=== PATIENT | male | born 1935 | race Caucasian/White ===

== ENCOUNTER 2017-10-12 10:19 | Observation (INO) | payer MEDICARE ==
[~2017-10-12] VITALS: Ht 175.3 cm; Wt 79.5 kg
[~2017-10-12 10:19] MED LIST: Z.0.AVAPRO150 MG PO; Z.0.CIPRO500 MG PO; Z.0.FLAGYL500 MG PO; Z.0.LUMIGAN2.5 M1 OP; Z.0.SYNTHROID50 MCG PO; Z.0.TRICOR48 MG PO
--- OUTSIDE RECORDS SUMMARY | 2017-10-12 10:21 | XMS REPORT ---
Author Author [facility] Address Unknown Phone Unavailable Care Team Providers Care Finance Effectiveness Manager Name Role Phone ARITAMARK ORTIZ Unavailable Unavailable LYNNE ESQUIVEL Unavailable Unavailable Problems This patient has no known problems. Allergies, Adverse Reactions, Alerts This patient has no known allergies or adverse reactions. Medications This patient has no known medications. Encounters Start Date/Time End Date/Time Encounter Type Admission Type Attending Clinicians Care Facility Care Department Encounter ID 2017-10-12 05:35:00 2017-10-12 06:43:00 Emergency E [facility] [id number] Results Test Description Test Time Test Comments Text Results Atomic Results Result Comments CARDIAC PROFILE 2017-10-12 06:43:00 TROPONIN I (test code=A84) <0.015 ng/mL 0.000-0.045 CKMB (test code=A49) 6.6 ng/mL <=3.6 CPK (test code=32A) 252 IU/L 39-308 COMPREHENSIVE METABOLIC [id number] 06:29:00* Test Item Value Reference Range Comments GLUCOSE (test code=06D) 149 mg/dL 75-100 SODIUM (test code=01A) 142 mmol/L 136-145 POTASSIUM (test code=01B) 3.9 mmol/L 3.6-5.1 CHLORIDE (test code=04A) 108 mmol/L 98-107 CO2 (test code=02A) 26 mmol/L 22-32 ANION GAP (test code=ANG) 11.9 mmol/L BUN (test code=05D) 22 mg/dL 7-18 CREATININE (test code=03E) 1.2 mg/dL 0.7-1.3 BUN/CREA (test code=BCR) 18 12-20 CALCIUM (test code=09D) 9.3 mg/dL 8.3-9.5 BILI TOTAL (test code=11A) 0.9 mg/dL 0.2-1.0 PROTEIN (test code=07D) 6.7 g/dL 6.4-8.2 ALBUMIN (test code=08D) 3.7 g/dL 3.5-4.8 GLOBULIN (test code=GLB) 3.0 g/dL 1.5-3.8 ALB/GLOB (test code=AGRR) 1.2 1.0-2.6 ALK PHOS (test code=35A) 83 IU/L 42-121 AST (test code=30A) 18 IU/L <=42 ALT (test code=31A) 17 IU/L <=78 PRO TIME AND [id number] 06:23:00* Test Item Value Reference Range Comments PT (test code=TT) 12.1 s 9.8-13.6 INR (test code=INR) 1.1 INRH (test code=INRH) SUGGESTED THERAPEUTIC RANGE FOR INR: 2.5 - 3.5 For Patients with Prosthetic Valves or Patients with recurrent Thromboembolic Events 2.0 - 3.0 For Most Other Applications PTT (test code=PTT) 30.4 s 20.2-38.0 PTTH (test code=PTTH) To monitor the effectiveness of heparin, we offer the Anti-Xa (Heparin Assay). It can be used for either unfractionated or LMW Heparin. Order Code is ANTI-XA CBC (INCLUDES AUTOMATED DIFFERENTIAL)2017-10-12 06:14:00* Test Item Value Reference Range Comments WBC (test code=WBC) 8.9 10\S\3/uL 4.5-11.0 RBC (test code=RBC) 4.34 10\S\6/uL 3.80-5.80 HGB (test code=HBG) 13.9 g/dL 14.0-18.0 HCT (test code=HCT) 41.2 % 35.0-46.0 MCV (test code=MCV) 94.9 fL 80.0-94.0 MCH (test code=MCH) 32.0 pg 27.0-31.0 MCHC (test code=MCHC) 33.7 g/dL 32.0-36.0 RDW (test code=RDW) 12.6 % 11.5-14.5 PLT (test code=PLT) 149 10\S\3/uL 130-400 MPV (test code=MPV) 10.0 fL 9.4-12.4 NEUTROP # (test code=NE#) 7.6 10\S\3/uL 2.0-8.0 LYMPH # (test code=LY#) 0.6 10\S\3/uL 1.2-4.0 MONOCYTE # (test code=MO#) 0.5 10\S\3/uL 0.0-1.1 EOSINOPH # (test code=EO#) 0.1 10\S\3/uL 0.0-0.7 BASOPHIL # (test code=BA#) 0.0 10\S\3/uL 0.0-0.3 IG # (test code=IG#) 0.04 10\S\3/uL 0.00-0.06 NRBC # (test code=NRBC#) 0.00 10\S\3/uL 0.00-0.01 NEUTROPH % (test code=NE%) 85.8 % 35.0-73.0 LYMPH % (test code=LY%) 7.1 % 20.0-55.0 MONO % (test code=MO%) 5.6 % 2.5-10.0 EOSINOPH % (test code=EO%) 0.7 % 0.0-5.0 BASOPHIL % (test code=BA%) 0.4 % 0.0-2.0 IG % (test code=IG%) 0.4 % 0.0-0.8 NRBC% (test code=NRBC%) 0.0 % 0.0-0.2 MANDIFF (test code=MDIFF) NO NO RBC MORPH (test code=RBCMOR) NORMAL XR CHEST 1 VIEW [id number] 06:03:55Xray Chest 1 viewsLocation Code: [id number]: None availableCLINICAL HISTORY: MVCFindings: The cardiomediastinal silhouette is within normal limits. No pulmonary edema, pleural effusion or consolidation, although exam evaluation is limited by lowlung volumes.IMPRESSION: No plain radiographic evidence of an acute cardiopulmonary abnormality,although evaluation is limited by low lung volumesCT CERVICAL SPINE W/O [id number] 06:02:52CT OF THE BRAIN AND CERVICAL SPINE WITHOUT CONTRAST Location code: [id number] HISTORY: MVCCOMPARISON: None.TECHNIQUE: CT brain and cervical spine was performed without IV contrast perprotocol. Automatic exposure control was utilized.FINDINGS: CT brain without:There is no acute intracranial hemorrhage or extra-axial collection. There isno hydrocephalus, midline shift, or significant mass effect.The basal cisterns are patent.There is generalized volume loss with compensatory enlargement of the corticalsulci and cerebral ventricles. Diffuse periventricular low attenuation is consistent with chronic small vesselischemic changes. Posterior circulation calcifications are notedThe paranasal sinuses and mastoid air cells are well-aerated.CT cervical spine: Findings are limited by instrument anterior fusion of C5-C7. No evidence ofacute cervical spine fracture or traumatic subluxation. DISH is noted. Noprevertebral soft tissue swelling. No pneumothorax is visualized.Impression: No acute intracranial hemorrhage or significant mass effect, acute cervicalspine fracture or traumatic subluxation.Additional findings as aboveCT HEAD W/O [id number] 06:02:52CT OF THE BRAIN AND CERVICAL SPINE WITHOUT CONTRAST Location code: [id number] HISTORY: MVCCOMPARISON: None.TECHNIQUE: CT brain and cervical spine was performed without IV contrast perprotocol. Automatic exposure control was utilized.FINDINGS: CT brain without:There is no acute intracranial hemorrhage or extra-axial collection. There isno hydrocephalus, midline shift, or significant mass effect.The basal cisterns are patent.There is generalized volume loss with compensatory enlargement of the corticalsulci and cerebral ventricles. Diffuse periventricular low attenuation is consistent with chronic small vesselischemic changes. Posterior circulation calcifications are notedThe paranasal sinuses and mastoid air cells are well- aerated.CT cervical spine:Findings are limited by instrument anterior fusion of C5-C7. No evidence ofacute cervical spine fracture or traumatic subluxation. DISH is noted. Noprevertebral soft tissue swelling. No pneumothorax is visualized.Impression:No acute intracranial hemorrhage or significant mass effect, acute cervicalspine fracture or traumatic subluxation.Additional findings as aboveCT BRAIN WO [place] [id number] [place] [address] Patient Name: SYL SALAS MR #: [id number] : 1935 Age/Sex: 81/M Req #: [id number] Adm Physician: Ordered by: LYNNE ESQUIVEL MD Report # : [id number] Location: Room/Bed: Procedure: 1202 -0003 CT/CT BRAIN WO Exam Date: 07/08/17 Exam Time: 0815 REPORT STATUS: Signed History:Fall, no loss of consciousness Comparison studies:None Technique: Axial images were obtained from the skull base to the vertex. Coronal and sagittal images reconstructed from the axial data. Intravenous contrast: None Findings: Scalp/skull: No abnormalities. Extra-axial spaces: No masses. No fluid collections. Brain sulci: Mildly prominent. Ventricles: Mild compensatory dilatation. No hydrocephalus. Parenchyma: Scattered and confluent hypodensities in the supratentorial white matter are small vessel ischemic changes. No masses, hemorrhage, or acute cortical vascular insults. Sellar/suprasellar region : No abnormalities. Craniocervical junction: Patent foramen magnum. No Chiari one malformation. Incidental findings: Atherosclerotic calcifications in the carotid siphons . Opacified and expanded left sphenoid sinus with periosteal thickening. Bilateral lens prostheses. Mild left superolateral orbital swelling. Impression: No acute abnormalities. Mild left superolateral orbital swelling. Chronic findings: 1. Mild generalized volume loss. 2. Moderate supratentorial white matter small vessel ischemic changes. 3. Chronic left sphenoid sinusitis Signed by: DR Sergio Dumont M.D. on 07/08/2017 11:34 AM Dictated By: SERGIO STEWARD MD 1135 Transcribed By: RAINA on 07/08/17 1134 COPY TO: LYNNE ESQUIVEL MD CT ORBIT/SELLA/PF WO [place] [address] Patient Name: SYL SALAS MR #: [id number] : 1935 Age/Sex: 81/M Req #: [id number] [facility] Physician: Ordered by: LYNNE ESQUIVEL MD Report # : [id number] Location: ER Room/Bed: Procedure: 1202 -0004 CT/CT ORBIT/SELLA/PF WO Exam Date: 07/08/17 Exam Time: 0815 REPORT STATUS: Signed Examination: CT orbits without Contrast History:Fall Comparison studies: None Technique: Axial images were obtained through the maxillofacial region. Coronal and sagittal reconstructions obtained from the axial data. Intravenous contrast: None Findings: Soft tissues: Mild superficial soft tissue swelling along the left superolateral orbit. Bones: No fractures or bony abnormalities. Orbits: Globes: Intact. Bilateral lens prostheses noted. Extra or intraconal abnormalities: None. Paranasal sinuses: Opacified expanded left sphenoid sinus with periosteal . Mild mucosal thickening in the maxillary sinuses Nasal cavity: Patent. No septal deviation. IMPRESSION: No fracture or dislocation. Mild superficial soft tissue swelling along the left superolateral orbit. Chronic left sphenoid sinusitis Signed by: DR Sergio Dumont M.D. on 07/08/2017 11:34 AM Dictated By: SERGIO STEWARD MD 1134 Transcribed By: RAINA on 07/08/17 1134 COPY TO: LYNNE ESQUIVEL MD
--- OUTSIDE RECORDS SUMMARY | 2017-10-12 10:21 | XMS REPORT | Summary of Care ---
Author Author MARLON Mayo, ADELIA Patel Unknown Address Unknown Phone Unavailable Care Team Providers Care Director Environmental Name Role Phone KRISTA Mayo, RAMBO CHAPMAN M.D., SERGIO Unavailable Unavailable MARLON Mayo, ADELIA Unavailable Unavailable KRISTA LUGO FL, RAMBO SEVILLA Unavailable Unavailable KAILA Mayo, LEE Unavailable Unavailable Unavailable Unavailable Functional Status Name Dates Details Functional status health issues are not documented Status: Name Dates Details Cognitive status health issues are not documented Status: Problems Name Dates Details Arthralgia of shoulder region (719.41, M25.519) Status: Active Otitis externa (380.10, H60.90) Status: Active Preventative health care (V70.0, Z00.00) Status: Active Localized swelling, mass or lump of trunk (R22.2) Status: Active Abdominal wall pain (789.00, R10.9) Status: Active Advance directive discussed with patient (V65.49, Z71.89) Status: Active Acute pharyngitis (462, J02.9) Status: Active Need for vaccination with 13-polyvalent pneumococcal conjugate vaccine (V03.82 , Z23) Status: Active Bilateral impacted cerumen (380.4, H61.23) Status: Active Constipation, chronic (564.00, K59.09) Status: Active Posterior neck pain (723.1, M54.2) Status: Active IFG (impaired fasting glucose) (790.21, R73.01) Status: Active Impaired fasting glucose (790.21, R73.01) Status: Active Chronic throat pain (784.1, R07.0) Status: Active Vitamin D deficiency (268.9, E55.9) Status: Active Diverticulosis of colon (562.10, K57.30) Status: Active Chronic mouth breathing (784.99, R06.5) Status: Active 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, M47.812) Status: Active Status post cervical spinal fusion (V45.4, Z98.1) Status: Active Xerostomia due to mouth breathing (527.7, R68.2) Status: Active Obstructive sleep apnea, adult (327.23, G47.33) Status: Active Hypertensive kidney disease with stage 3 chronic kidney disease (403.90, I12.9 ) Status: Active Persistent cough (786.2, R05) Status: Active Essential (primary) hypertension (401.9, I10) Status: Active Chronic kidney disease, stage III (moderate) (585.3, N18.3) Status: Active On statin therapy (V58.69, Z79.899) Status: Active Hyperlipidemia (272.4, E78.5) Status: Active Prediabetes (790.29, R73.03) Status: Active Hypothyroidism (244.9, E03.9) Status: Active Dependent edema (782.3, R60.9) Status: Active 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, 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: Active Influenza vaccine needed (V04.81, Z23) Status: Active Persistent cough (786.2, R05) Status: Active Posterior neck pain (723.1, M54.2) Status: Active Allergic rhinitis, seasonal (477.9, J30.2) Status: Active Diabetes mellitus (250.00, E11.9) Status: Active Head contusion (920, S00.93XA) Status: Active Acute bronchitis due to other specified organisms (466.0, J20.8) Status: Active Dizziness (780.4, R42) Status: Active Parkinson's disease (332.0, G20) Status: Active Other seborrheic dermatitis (690.18, L21.8) Status: Active Medications Name Dates Details Losartan Potassium 50 MG Oral Tablet TAKE 1 TABLET BY MOUTH EVERY DAY Quantity: 90 RAMBO VELASCO M.D. * Start : 20-Jul-2013 Active Levothyroxine Sodium 50 MCG Oral Tablet TAKE 1 TABLET BY MOUTH EVERY DAY * Quantity: 90 Refills: 0 RAMBO EVLASCO M.D. * Start : 19-Aug-2013 Active Tylenol CAPS 325mg prn * Refills: 0 Active Combigan SOLN 2.5mg twice daily * Refills: 0 Active OneTouch Delica Lancets 33G Check BG 2x a day * Quantity: 100 Refills: 11 SERGIO CHAPMAN M.D. * Start : 01-Apr-2014 Active Meclizine HCl - 25 MG Oral Tablet TAKE 1 TABLET EVERY 8 HOURS NEEDED FOR DIZZINESS * Quantity: 60 Refills: 1 RAMBO VELASCO M.D. * Start : 21-Oct-2015 Active OneTouch Verio w/Device Kit check bs 2x daily * Quantity: 1 Refills: 0 SERGIO CHAPMAN M.D. * Start : 30-May-2016 Active Calcium 600+D3 TABS TAKE 1 TABLET DAILY * Refills: 0 Active Vitamin D3 5000 UNIT Oral Tablet TAKE 1 TABLET DAILY * Refills: 0 Active Krill Oil CAPS TAKE 1 CAPSULE DAILY * Refills: 0 Active Latanoprost 0.005 % Ophthalmic Solution INSTILL 1 DROP IN BOTH EYES AT BEDTIME. * Refills: 0 Active Glucosamine Chond Complex/MSM TABS * Refills: 0 Active Gabapentin 100 MG Oral Capsule TAKE TWO CAPSULES BY MOUTH TWICE A DAY * Quantity: 120 Refills: 5 RAMBO VELASCO M.D. * Start : 14-Feb-2017 Active OneTouch Verio In Vitro Strip use to check BG 2xs daily * Quantity: 100 Refills: 11 SERGIO CHAPMAN M.D. * Start : 23-Nov-2016 Active PredniSONE 20 MG Oral Tablet TAKE 1 TABLET DAILY WITH FOOD. * Quantity: 5 Refills: 0 RAMBO VELASCO M.D. * Start : 18-Sep-2017 Active Allergies and Adverse Reactions Name Dates Details Codeine Derivatives (Allergy) Reaction: Hallucinations Status: Active Contrast Media Ready-Box MISC (Allergy) Status: Active Iodine SOLN (Allergy) Status: Active TraMADol HCl TABS (Allergy) Status: Active Past Medical History Name Dates Details History of abdominal pain (V13.89, Z87.898) Status: Resolved History of allergic rhinitis (V12.69, Z87.09) Status: Resolved History of athlete's foot (V12.09, Z86.19) Status: Resolved History of chest pain (V13.89, Z87.898) Status: Resolved History of esophageal reflux (V12.79, Z87.19) Status: Resolved History of glaucoma (V12.49, Z86.69) Status: Resolved History of headache (V13.89, Z87.898) Status: Resolved History of hiatal hernia (V12.79, Z87.19) Status: Resolved History of Muscle spasm (728.85, M62.838) Status: Resolved History of Prostate Cancer (V10.46) Status: Resolved History of Prostate cancer (185, C61) Status: Resolved History of Sinusitis (473.9, J32.9) Status: Resolved History of tendinitis (V13.59, Z87.39) Status: Resolved History of tinea cruris (V12.09, Z86.19) Status: Resolved History of vertigo (V12.49, Z87.898) Status: Resolved Procedures Procedure Dates Details History of Complete Colonoscopy Completed History of Diagnostic Esophagogastroduodenoscopy Completed History of Umbilical Hernia Repair Completed History of Back Surgery Completed History of Neck Surgery Completed History of Hemorrhoidectomy Completed History of Cataract Surgery Completed History of Thymectomy Completed History of Knee Surgery Completed Immunization Name Dates Details Td on: Sep-1996 Td on: Oct-2006 Pneumococcal polysaccharide vaccine, 23 valent on: Oct-2006 Hepatitis A on: 04-Nov-2008 Hepatitis A on: 22-May-2009 Influenza on: 08-Apr-2010 Pneumococcal polysaccharide vaccine, 23 valent on: 14-May-2010 Tdap on: 20-Sep-2011 Zoster (Zostavax) on: 04-Oct-2012 Influenza Comments: Approx [id number] Influenza Comments: Approx [id number] Influenza Comments: Approx [id number] Prevnar 13 Intramuscular Suspension Lot #: [id number] on: 18-Aug-2016 Fluzone High-Dose 0.5 ML Intramuscular Suspension Prefilled Syringe Lot #: [id number] on: 20-Apr-2017 Family History Name Dates Details Family history of FH Unobtainable - Patient Adopted Comments: Family History Status: Active Social History Name Dates Details - Status: Name Dates Details Never smoker Vital Signs Date Test Result Details [id number] BP Systolic 123 mm[Hg] Status: Comments: Location: LUE; Position: Sitting BP Diastolic 81 mm[Hg] Status: Comments: Location: LUE; Position: Sitting Height 69 in Status: Weight 173.375 lb Status: Body Mass Index Calculated 25.6 kg/m2 Status: Body Surface Area Calculated 1.94 m2 Status: Temperature 98.3 f Status: Comments: Method: Temporal Respiration Rate 16 /min Status: Comments: Quality: Normal O2 SAT 99 % Status: Comments: Source: RA Heart Rate 73 /min Status: Results Date Description Value Details Results not documented Plan of Care Name Dates Details Planned Observations Planned Goals not documented Planned Encounters Appointment; RAMBO VELASCO M.D. On: 17-Oct-2017 8:30 Interventions Provided Medications/Immunizations Administered* MethylPREDNISolone Acetate 40 MG/ML Injection Suspension Plan* Mr. Salas is a 81 year old male with PMH of untreated Parkinsons, DM2, HTN, HLD, and hypothyroidism who is here for 2-3 month history of allergic rhinitis. * They were given the allergy handout and advised to take OTC medications. * I will give him a shot of steroids to treat the flare. * Follow up as needed. Instructions Name Dates Details Instructions not documented Encounters Appointment; SERGIO CHAPMAN M.D. Encounter Diagnosis: Problem not documented On: 21-Oct-2015 8:00 Appointment; SERGIO CHAPMAN M.D. Encounter Diagnosis: Problem not documented On: 25-Feb-2016 8:30 Appointment; SERGIO CHAPMAN M.D. Encounter Diagnosis: Problem not documented On: 29-Jun-2016 8:00 Appointment; RAMBO VELASCO M.D. Encounter Diagnosis: Problem not documented On: 18-Aug-2016 9:45 Appointment; RAMBO VELASCO M.D. Encounter Diagnosis: Problem not documented On: 25-Aug-2016 8:30 Appointment; TRISTON JOSE D.O. Encounter Diagnosis: Problem not documented On: 19-Sep-2016 13:30 Appointment; RAMBO VELASCO M.D. Encounter Diagnosis: Problem not documented On: 04-Oct-2016 14:15 Appointment; RAMBO VELASCO M.D. Encounter Diagnosis: Problem not documented On: 18-Oct-2016 13:45 Appointment; SERGIO CHAPMAN M.D. Encounter Diagnosis: Problem not documented On: 24-Oct-2016 8:00 Appointment; ADELIA MASON M.D. Encounter Diagnosis: Problem not documented On: 24-Oct-2016 11:00
[2017-10-12 11:46] LABS: BASOPHILS # (AUTO) 0.1 (0.0-0.1); BASOPHILS % 0.5 % (0.0-1.0); EOSINOPHILS # (AUTO) 0.1 (0.0-0.4); EOSINOPHILS % 0.8 % (0.0-6.0); HEMATOCRIT 46.5 % (38.2-49.6); HEMOGLOBIN 15.7 g/dL (14.0-18.0); LYMPHOCYTES # (AUTO) 1.1 (1.0-3.2); LYMPHOCYTES % 10.5 % (18.0-39.1); MEAN CORPUSCULAR HEMOGLOBIN 32.4 pg (28-32); MEAN CORPUSCULAR HGB CONC 33.8 g/dL (31-35); MEAN CORPUSCULAR VOLUME 96.1 fL (81-99); MONOCYTES # (AUTO) 0.8 (0.2-0.8); MONOCYTES % 7.6 % (4.4-11.3); NEUTROPHILS # (AUTO) 8.7 (2.1-6.9); NEUTROPHILS % 80.3 % (38.7-80.0); PLATELET COUNT 137 x10e3/uL (140-360); RED BLOOD COUNT 4.84 x10e6/uL (4.3-5.7); RED CELL DISTRIBUTION WIDTH 12.6 % (11.7-14.4)
[2017-10-12 11:56] LABS: INR 1.1; PROTHROMBIN TIME 13.4 seconds (11.9-14.5)
[2017-10-12 11:57] LABS: PARTIAL THROMBOPLASTIN TIME 23.5 seconds (23.8-35.5)
[2017-10-12 12:04] LABS: ALBUMIN 4.1 g/dL (3.5-5.0); ALBUMIN/GLOBULIN RATIO 1.4 (0.8-2.0); ANION GAP 15.3 mmol/L (8-16); CALCIUM 9.5 mg/dL (8.4-10.2); CREATININE, SERUM 1.23 mg/dL (0.72-1.25); POTASSIUM 4.3 mmol/L (3.5-5.1)
[2017-10-12] MEDS ORDERED: ACETAMINOPHEN 325 MG TAB PO ONE (13:00)
[2017-10-12] MEDS: ASPIRIN 325 MG TAB PO ONE ×2 (13:15→14:00)
[2017-10-12] MEDS ORDERED: ENOXAPARIN SODIUM INJ 100 MG/ML SYR SC SCH (14:45)
[2017-10-12] MEDS: METOPROLOL TARTRATE 25 MG TAB PO SCH ×2 (15:00→21:00)
[2017-10-12] MEDS ORDERED: ENOXAPARIN INJ 80 MG/0.8 ML SYR SC SCH ×2 (15:00→21:00)
--- NOTE | 2017-10-12 15:00 | Diagnostic Imaging Report ---
PROCEDURE: A single AP view of the chest. COMPARISON: None. INDICATIONS: CHEST PAIN FINDINGS: Lines/tubes: None. Lungs: The lungs are well inflated and clear. There is no evidence of pneumonia or pulmonary edema. Pleura: There is no pleural effusion or pneumothorax. Heart and mediastinum: The heart and the mediastinum are unremarkable. Bones: No acute bony abnormality. Mild degenerative changes in bilateral glenohumeral and acromioclavicular joints. No acute, displaced fracture or dislocation in this single view. Partially visualized. Fusion hardware in the lower cervical/upper thoracic spine. Midline sternotomy wires. IMPRESSION: 1. No acute cardiopulmonary abnormalities. Beto Sheriff M.D. Dictated by: Beto Sheriff M.D. on 10/12/2017 at 15:00 Electronically approved by: Beto Sheriff M.D. on 10/12/2017 at 15:00
[2017-10-12] MEDS ORDERED: PRAVASTATIN SOD40 MG (17:57)
[2017-10-12] MEDS ORDERED: COMBIGAN EYE DRO5 ML ×2 (17:57→18:01)
[2017-10-12] MEDS ORDERED: LOSARTAN POTASS50 MG (17:57)
[2017-10-12] MEDS ORDERED: LATANOPROST2.5 ML OP (17:57)
[2017-10-12] MEDS ORDERED: CEPACOL SORE THROAT LOZENGES PO PRN (18:15)
[2017-10-12 18:16] VITALS: BP 138/92
[2017-10-12 18:17] VITALS: BP 138/92
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
[2017-10-12 19:00] VITALS: BP 100/62
[2017-10-12] MEDS ORDERED: LATANOPROST(OPTH) 2.5 ML BTL OP SCH (21:00)
[2017-10-12 21:25] LABS: CREATINE KINASE MB 17.4 ng/mL (0-5.0); FREE THYROXINE INDEX 1.8342 (1.4-3.8); THYROID STIMULATING HORMONE 1.181 uIU/mL (0.350-4.940)
[2017-10-12] MEDS: ENOXAPARIN 30 MG/0.3 ML SYR SC SCH (21:44)
[2017-10-12] MEDS: BRIMONIDINE/TIMOLOL (OPTH SOLN 5 ML DRPETTE OP SCH (21:44)
[2017-10-12 22:02] VITALS: BP 100/62
[2017-10-13] VITALS: BP 123/75
[2017-10-13 04:00] VITALS: BP 125/60
[2017-10-13] MEDS ORDERED: LEVOTHYROXINE SODIUM 50 MCG TAB PO SCH (06:00)
[2017-10-13 06:32] LABS: BASOPHILS # (AUTO) 0.1 (0.0-0.1); BASOPHILS % 0.7 % (0.0-1.0); EOSINOPHILS # (AUTO) 0.2 (0.0-0.4); EOSINOPHILS % 2.6 % (0.0-6.0); HEMATOCRIT 42.8 % (38.2-49.6); HEMOGLOBIN 14.1 g/dL (14.0-18.0); LYMPHOCYTES # (AUTO) 1.8 (1.0-3.2); LYMPHOCYTES % 20.2 % (18.0-39.1); MEAN CORPUSCULAR HEMOGLOBIN 32.3 pg (28-32); MEAN CORPUSCULAR HGB CONC 32.9 g/dL (31-35); MEAN CORPUSCULAR VOLUME 98.2 fL (81-99); MONOCYTES # (AUTO) 0.7 (0.2-0.8); MONOCYTES % 8.1 % (4.4-11.3); NEUTROPHILS # (AUTO) 6.2 (2.1-6.9); NEUTROPHILS % 68.1 % (38.7-80.0); PLATELET COUNT 142 x10e3/uL (140-360); RED BLOOD COUNT 4.36 x10e6/uL (4.3-5.7); RED CELL DISTRIBUTION WIDTH 12.8 % (11.7-14.4)
[2017-10-13 06:53] LABS: ANION GAP 14.1 mmol/L (8-16); CALCIUM 9.8 mg/dL (8.4-10.2); POTASSIUM 4.1 mmol/L (3.5-5.1)
[2017-10-13 06:54] LABS: CREATINE KINASE MB 12.4 ng/mL (0-5.0)
[2017-10-13 07:20] LABS: ALBUMIN 3.7 g/dL (3.5-5.0); ALBUMIN/GLOBULIN RATIO 1.3 (0.8-2.0); CREATININE, SERUM 1.31 mg/dL (0.72-1.25)
[2017-10-13 08:48] VITALS: BP 113/67
[2017-10-13] MEDS ORDERED: VALSARTAN 80 MG TAB PO SCH (09:00)
[2017-10-13] MEDS: BRIMONIDINE/TIMOLOL (OPTH SOLN 5 ML DRPETTE OP SCH (09:08)
[2017-10-13] MEDS: ENOXAPARIN 30 MG/0.3 ML SYR SC SCH (09:09)
[2017-10-13] MEDS: METOPROLOL TARTRATE 25 MG TAB PO SCH (09:09)
[2017-10-13] MEDS ORDERED: ACETAMINOPHEN 325 MG TAB PO PRN (09:45)
[2017-10-13 11:10] VITALS: BP 113/67
[2017-10-13 12:00] VITALS: BP 109/75
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
--- NOTE | 2017-10-13 13:15 | Diagnostic Imaging Report ---
PROCEDURE:X-RAY RIGHT SHOULDER, COMPLETE COMPARISON:01/02/15 INDICATIONS:SHOULDER PAIN FINDINGS: There are no fractures, dislocations, lytic or blastic lesions. The bones are well-mineralized. The soft-tissues are unremarkable. Degenerative changes of the right AC joint. CONCLUSION: No acute fracture or dislocation of the right shoulder. No significant change from prior exam. Dictated by: Malachi Phan M.D. on 10/13/2017 at 13:15 Electronically approved by: Malachi Phan M.D. on 10/13/2017 at 13:15
[2017-10-13 15:31] VITALS: BP 101/64
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
== END 2017-10-13 17:21 | disposition home or self-care (01) ==
LOC: ER 10:19 → ERHOLD 14:58 → IMCU 16:44
PROVIDERS: ADMIT Internal Medicine Cardiovascular Disease; ATTEND Internal Medicine Cardiovascular Disease
DX: M62.82 Rhabdomyolysis (principal); I10 Essential (primary) hypertension; E78.5 Hyperlipidemia, unspecified; E03.9 Hypothyroidism, unspecified; G20 Parkinson's disease; F02.80 Dementia in other diseases classified elsewhere, unspecified severity, without behavioral disturbance, psychotic disturbance, mood disturbance, and anxiety; Y93.89 Activity, other specified; E11.9 Type 2 diabetes mellitus without complications; Z85.46 Personal history of malignant neoplasm of prostate; V47.0XXA Car driver injured in collision with fixed or stationary object in nontraffic accident, initial encounter
CPT/HCPCS: 36415 ×2; 71045; 73030; 80053 ×2; 80061; 82140; 82150; 82550 ×2; 82553 ×2; 83690; 84436; 84443; 84479; 84484 ×2; 85025 ×2; 85610; 85730; 93005 ×2; 93306; 97161; 99284; G0378 ×2; J1650 ×3

== ENCOUNTER 2018-01-11 21:20 | Emergency (ER) | payer MEDICARE ==
[~2018-01-11] VITALS: Ht 175.3 cm; Wt 79.4 kg
[~2018-01-11 21:20] MED LIST changes: +COMBIGAN EYE DRO5 ML; +LATANOPROST2.5 ML OP; +LOSARTAN POTASS50 MG; +PRAVASTATIN SOD40 MG
--- OUTSIDE RECORDS SUMMARY | 2018-01-11 21:23 | XMS REPORT | Continuity of Care Document ---
Author Author [facility] Organization [facility] Address [address] [place] [address] Phone Unavailable Care Team Providers Care Culturist Name Role Phone RAMBO VELASCO PCP Insurance Providers Guarantor Rahul Cristobal Address [address] [place] [address] Email NONE Payer Blue Medicare Advantage Policy Number [id number] Subscriber's Name LevarRahul Relationship 18 Self / Same As Patient Effective Date 07 Advance Directives Directive Response Recorded Date/Time Does the patient have an advance directive? No 10/12/17 6:07pm If yes, is advance directive on file with [facility]? No 10/12/17 6:07pm If not on file with [facility] will patient provide a copy? No 10/12/17 6:07pm Do you have a Directive to Physician? No 10/12/17 12:17pm Do you have a Medical Power of Labor Gang Supervisor? Yes 10/12/17 12:17pm Do you have an out of hospital Do Not Resuscitate Order? No 10/12/17 12:17pm Do you have any special needs we should be aware of? No 10/12/17 12:17pm Do you have a support person here with you today? Yes 10/12/17 12:17pm Did patient receive Notice of Privacy Practices? Yes 10/12/17 12:17pm Did patient receive patient rights and responsibilities? Yes 10/12/17 12:17pm Problems Medical Problem Onset Date Status Chest pain Unknown Medications Current Home Medications Medication Dose Units Route Directions Days Qty Instructions Start Date Brimonidine Tartrate (Combigan Eye Drops) 5 Ml Drpette 1 Drop Twice A Day Latanoprost 2.5 Ml Drops 2.5 Ml Ophthalmic Bedtime Levothyroxine Sodium (Synthroid) 50 Mcg Tablet 50 Mcg Oral Daily Losartan Potassium 50 Mg Tablet Daily Pravastatin Sodium 40 Mg Tablet Bedtime Past Home Medications Medication Directions Ordered Status Bimatoprost (Lumigan) 2.5 Ml Drops, 2.5 Ml Ophthalmic Qhs Discontinued Brimonidine Tartrate (Combigan Eye Drops) 5 Ml Drpette, Twice A Day Discontinued Ciprofloxacin Hcl (Cipro) 500 Mg Tablet, 500 Mg Oral Twice A Day Discontinued Fenofibrate Nanocrystallized (Tricor) 48 Mg Tablet, 48 Mg Oral Daily Discontinued Irbesartan (Avapro) 150 Mg Tablet, 150 Mg Oral Daily Discontinued Metronidazole (Flagyl) 500 Mg Tablet, 500 Mg Oral Three Times A Day Discontinued Social History Social History Problem Response Recorded Date/Time Onset Date Status Hx Psychiatric Problems No 10/12/2017 6:07pm Not Applicable Not Applicable Smoking Status Start Date Stop Date Unknown if ever smoked Hospital Discharge Instructions No hospital discharge instruction information available. Plan of Care Discharge Date 10/13/17 5:21pm Disposition HOME, SELF-CARE Instructions/Education Provided Fall Prevention Prescriptions See Medication Section Referrals CLAYTON PINON MD (Cardiology) Order Date: 7-10 Days Entered Date: 10/13/2017 10:35am Address: [address] [place] [id number] [facility] (Family Practice) Order Date: 5-7 Days Entered Date: 10/13/2017 10:35am Additional Instructions/Education NO DRIVING FOLLOW UP WITH DR KRISTA PRATT ORDERED Functional Status Query Response Date Recorded FUNCTIONAL STATUS . October 13, 2017 11:19am Assistive Devices Straight Cane October 12, 2017 6:17pm Ambulation Ability Independent October 12, 2017 6:17pm Toileting Ability Independent October 12, 2017 6:17pm Allergies, Adverse Reactions, Alerts Allergen Type Severity Reaction Status Last Updated Iodine Allergy Mild Active 04/10/10 Codeine Allergy Unknown Rash Active 10/12/17 Tramadol Allergy Unknown Active 10/12/17 Immunizations No immunization information available. Vital Signs Acute Vital Signs Vital Response Date/Time Temperature (Fahrenheit) 97.3 degrees F (97.6 - 99.5) 10/13/2017 3:31pm Pulse Pulse Rate (adult) 60 bpm (60 - 90) 10/13/2017 3:31pm Respiratory Rate 18 bpm (12 - 24) 10/13/2017 3:31pm Blood Pressure 101/64 mm Hg 10/13/2017 3:31pm Height 5 ft 9 in 10/12/2017 10:25am Weight 175.31 lb 10/13/2017 1:18am Body Mass Index 25.9 kg/m^2 10/13/2017 1:18am Results Laboratory Results Test Name Result Units Flags Reference Collection Date/Time Result Date/ Time Comments White Blood Count 9.13 x10e3/uL 4.8-10.8 10/13/2017 6:15am 10/13/2017 6 :47am Red Blood Count 4.36 x10e6/uL 4.3-5.7 10/13/2017 6:15am 10/13/2017 6: 47am Hemoglobin 14.1 g/dL 14.0-18.0 10/13/2017 6:15am 10/13/2017 6:47am Hematocrit 42.8 % 38.2-49.6 10/13/2017 6:15am 10/13/2017 6:47am Mean Corpuscular Volume 98.2 fL 81-99 10/13/2017 6:15am 10/13/2017 6: 47am Mean Corpuscular Hemoglobin 32.3 pg H 28-32 10/13/2017 6:15am 2017 6:47am Mean Corpuscular Hemoglobin Concent 32.9 g/dL 31-35 10/13/2017 6:15am 10/13/2017 6:47am Red Cell Distribution Width 12.8 % 11.7-14.4 10/13/2017 6:152017 6:47am Platelet Count 142 x10e3/uL 140-360 10/13/2017 6:15am 10/13/2017 6: 47am Neutrophils (%) (Auto) 68.1 % 38.7-80.0 10/13/2017 6:15am 10/13/2017 6: 47am Lymphocytes (%) (Auto) 20.2 % 18.0-39.1 10/13/2017 6:1510/13/2017 6: 47am Monocytes (%) (Auto) 8.1 % 4.4-11.3 10/13/2017 6:1510/13/2017 6: 47am Eosinophils (%) (Auto) 2.6 % 0.0-6.0 10/13/2017 6:1510/13/2017 6: 47am Basophils (%) (Auto) 0.7 % 0.0-1.0 10/13/2017 6:1510/13/2017 6:47am IM GRANULOCYTES % 0.3 % 0.0-1.0 10/13/2017 6:1510/13/2017 6:47am Neutrophils # (Auto) 6.2 2.1-6.9 10/13/2017 6:15am 10/13/2017 6:47am Lymphocytes # (Auto) 1.8 1.0-3.2 10/13/2017 6:15am 10/13/2017 6:47am Monocytes # (Auto) 0.7 0.2-0.8 10/13/2017 6:15am 10/13/2017 6:47am Eosinophils # (Auto) 0.2 0.0-0.4 10/13/2017 6:15am 10/13/2017 6:47am Basophils # (Auto) 0.1 0.0-0.1 10/13/2017 6:1510/13/2017 6:47am Absolute Immature Granulocyte (auto 0.03 x10e3/uL 0-0.1 10/13/2017 6: 15am 10/13/2017 6:47am Prothrombin Time 13.4 seconds 11.9-14.5 10/12/2017 11:30am 10/12/2017 11:59am Prothromb Time International Ratio 1.10 10/12/2017 11:30am 2017 11:59am Oral Anticoagulant Therapy INR Values: 1. Low Intensity Therapy 1.5 - 2.0 2. Moderate Intensity Therapy 2.0 - 3.0 3. High Intensity Therapy(1) 2.5 - 3.5 4. High Intensity Therapy(2) 3.0 - 4.0 5. Panic Value INR > 5.0 Activated Partial Thromboplast Time 23.5 seconds L 23.8-35.5 10/12/2017 11:30am 10/12/2017 11:59am Sodium Level 145 mmol/L 136-145 10/13/2017 6:15am 10/13/2017 6:56am Potassium Level 4.1 mmol/L 3.5-5.1 10/13/2017 6:15am 10/13/2017 6:56am Chloride Level 109 mmol/L H 98-107 10/13/2017 6:15am 10/13/2017 6:56am Carbon Dioxide Level 26 mmol/L 22-29 10/13/2017 6:15am 10/13/2017 6: 56am Anion Gap 14.1 mmol/L 8-16 10/13/2017 6:15am 10/13/2017 6:56am Blood Urea Nitrogen 25 mg/dL 7-26 10/13/2017 6:15am 10/13/2017 7:27am Creatinine 1.31 mg/dL H 0.72-1.25 10/13/2017 6:15am 10/13/2017 7:27am BUN/Creatinine Ratio 19 6-25 10/13/2017 6:15am 10/13/2017 7:27am Estimat Glomerular Filtration Rate 53 ML/MIN L 60- 10/13/2017 6:15am 04/2018 7:27am Ranges were taken from the National Kidney Disease Education Program and the National Kid[employer] Foundation literature. Reference ranges: 60 or greater: Normal 16-59 (for 3 consecutive months): Chronic kidney disease 15 or less: Kidney failure Glucose Level 104 mg/dL 74-118 10/13/2017 6:15am 10/13/2017 7:27am Calcium Level 9.8 mg/dL 8.4-10.2 10/13/2017 6:15am 10/13/2017 6:56am Total Bilirubin 1.1 mg/dL 0.2-1.2 10/13/2017 6:1510/13/2017 7:27am Aspartate Amino Transf (AST/SGOT) 40 IU/L H 5-34 10/13/2017 6:1510/13 6:56am Alanine Aminotransferase (ALT/SGPT) 17 IU/L 0-55 10/13/2017 6:1504/2018 7:27am Ammonia 87 UG/DL 31-123 10/12/2017 8:25pm 10/12/2017 8:58pm Total Protein 6.6 g/dL 6.5-8.1 10/13/2017 6:1510/13/2017 7:27am Albumin 3.7 g/dL 3.5-5.0 10/13/2017 6:1510/13/2017 7:27am Globulin 2.9 g/dL 2.3-3.5 10/13/2017 6:1510/13/2017 7:27am Albumin/Globulin Ratio 1.3 0.8-2.0 10/13/2017 6:1510/13/2017 7: 27am Alkaline Phosphatase 69 IU/L 40-150 10/13/2017 6:1510/13/2017 7: 27am Triglycerides Level 120 MG/DL 0-149 10/13/2017 6:1510/13/2017 6: 56am Cholesterol Level 198 MD/DL 0-199 10/13/2017 6:1510/13/2017 6:56am Less than 200 mg/dL Low Risk 201 - 239 mg/dL Borderline Risk 240 mg/dl and greater High Risk LDL Cholesterol 124 MG/DL 60-130 10/13/2017 6:1510/13/2017 7:27am HDL Cholesterol 50 MG/DL 40-60 10/13/2017 6:1510/13/2017 7:27am Cholesterol/HDL Ratio 4.0 3.9-4.7 10/13/2017 6:1510/13/2017 7: 27am Creatine Kinase 700 IU/L H 30-200 10/13/2017 6:1510/13/2017 7:27am Creatine Kinase MB 12.40 ng/mL H 0-5.0 10/13/2017 6:1510/13/2017 6: 56am Troponin I 0.022 ng/mL 0-0.300 10/13/2017 6:15am 10/13/2017 6:56am Amylase Level 75 U/L 25-125 10/12/2017 11:30am 10/12/2017 12:18pm Lipase 18 U/L 8-78 10/12/2017 11:30am 10/12/2017 12:18pm Free Thyroxine Index 1.8342 1.4-3.8 10/12/2017 8:25pm 10/12/2017 9: 25pm Thyroxine (T4) 5.43 ug/dL 4.5-10.9 10/12/2017 8:25pm 10/12/2017 9:25pm Triiodothyronine (T3) Uptake 33.78 % 22.5-37.0 10/12/2017 8:25pm 2017 9:25pm Thyroid Stimulating Hormone (TSH) 1.181 uIU/mL 0.350-4.940 10/12/2017 8: 25pm 10/12/2017 9:25pm Procedures Procedure Status Date Provider(s) Computed tomography of brain without radiopaque contrast Active 07/08/17 LYNNE ESQUIVEL MD Computed tomography of orbits, sella turcica, and posterior cranial fossa without contrast Active 07/08/17 LYNNE ESQUIVEL MD Encounters Encounter Location Arrival/Admit Date Discharge/Depart Date Attending Provider Discharged Inpatient (obs) [facility] 10/12/17 2:58pm 04/24 5:21pm CLAYTON PINON MD Departed Emergency Room [facility] 07/08/17 7:34am 9:38am LYNNE ESQUIVEL MD
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
--- NOTE | 2018-01-11 22:50 | Diagnostic Imaging Report ---
LUMBAR 3 VIEW HISTORY: Pain status post fall. COMPARISON: None FINDINGS: Bones: No displaced fracture. Osseous alignment is within normal limits. Joints: Severe degenerative changes of the thoracolumbar spine more significant at the facet joints of L4-5 and L5-S1 levels. Soft tissues: The soft tissues appear unremarkable. IMPRESSION: No acute osseous abnormality. Signed by: Dr. Juan Crespo M.D. on 01/11/2018 10:46 PM
--- NOTE | 2018-01-11 22:57 | Diagnostic Imaging Report ---
THORACIC SPINE 2VW HISTORY: Pain status post fall COMPARISON: None FINDINGS: Bones: No displaced fracture. Mild dextroscoliosis. Evidence of anterior lower cervical spine fusion with plate and screws. Joints: Multilevel degenerative changes of the thoracic spine more significant at the lower thoracic spine with intervertebral disc changes. Soft tissues: The soft tissues appear unremarkable. IMPRESSION: No acute radiographic abnormality. Signed by: Dr. Juan Crespo M.D. on 01/11/2018 10:54 PM
--- NOTE | 2018-01-11 22:57 | Diagnostic Imaging Report ---
EXAMINATION: CHEST 2 VIEWS INDICATION: Status post fall. COMPARISON: None FINDINGS: TUBES and LINES: None. LUNGS: Lungs are well inflated. Lungs are clear. There is no evidence of pneumonia or pulmonary edema. PLEURA: No pleural effusion or pneumothorax. HEART AND MEDIASTINUM: The cardiomediastinal silhouette is unremarkable. BONES AND SOFT TISSUES: No acute osseous lesion. Soft tissues are unremarkable. UPPER ABDOMEN: No free air under the diaphragm. IMPRESSION: No acute thoracic abnormality. Signed by: Dr. Juan Crespo M.D. on 01/11/2018 10:54 PM
== END 2018-01-11 23:37 | disposition home or self-care (01) ==
LOC: ER 21:20
DX: M54.6 Pain in thoracic spine (principal); M54.5 Low back pain; S23.3XXA Sprain of ligaments of thoracic spine, initial encounter; S33.5XXA Sprain of ligaments of lumbar spine, initial encounter; W01.0XXA Fall on same level from slipping, tripping and stumbling without subsequent striking against object, initial encounter; Y92.008 Other place in unspecified non-institutional (private) residence as the place of occurrence of the external cause; G20 Parkinson's disease; E78.00 Pure hypercholesterolemia, unspecified; Z85.46 Personal history of malignant neoplasm of prostate; Z85.828 Personal history of other malignant neoplasm of skin
CPT/HCPCS: 71046; 72070; 72100; 99283

== ENCOUNTER 2018-01-17 10:55 | Emergency (ER) | payer MEDICARE ==
[~2018-01-17] VITALS: Ht 175.3 cm; Wt 87.5 kg
[2018-01-17] MEDS ORDERED: ASPIRIN 81 MG CHEW TAB PO ONE (11:15)
[2018-01-17 11:25] LABS: BASOPHILS % 0.5 % (0.0-1.0); EOSINOPHILS # (AUTO) 0.2 (0.0-0.4); HEMATOCRIT 38.2 % (38.2-49.6); HEMOGLOBIN 12.5 g/dL (14.0-18.0); LYMPHOCYTES # (AUTO) 1.2 (1.0-3.2); LYMPHOCYTES % 14.5 % (18.0-39.1); MEAN CORPUSCULAR HEMOGLOBIN 32.8 pg (28-32); MEAN CORPUSCULAR HGB CONC 32.7 g/dL (31-35); MEAN CORPUSCULAR VOLUME 100.3 fL (81-99); MONOCYTES # (AUTO) 0.5 (0.2-0.8); MONOCYTES % 6.5 % (4.4-11.3); NEUTROPHILS # (AUTO) 6.2 (2.1-6.9); NEUTROPHILS % 75.4 % (38.7-80.0); PLATELET COUNT 141 x10e3/uL (140-360); RED BLOOD COUNT 3.81 x10e6/uL (4.3-5.7); RED CELL DISTRIBUTION WIDTH 13.2 % (11.7-14.4)
[2018-01-17 11:35] LABS: INR 1.09; PROTHROMBIN TIME 13.3 seconds (11.9-14.5)
[2018-01-17 11:43] LABS: ALBUMIN 3.6 g/dL (3.5-5.0); ALBUMIN/GLOBULIN RATIO 1.5 (0.8-2.0); ANION GAP 11.2 mmol/L (8-16); CALCIUM 9.8 mg/dL (8.4-10.2); CREATININE, SERUM 1.31 mg/dL (0.72-1.25); POTASSIUM 4.2 mmol/L (3.5-5.1)
[2018-01-17] MEDS ORDERED: SODIUM CHLORIDE 0.9% 500ML 500 ML IV ONE (11:45)
[2018-01-17 11:50] LABS: CREATINE KINASE MB 1.9 ng/mL (0-5.0)
--- NOTE | 2018-01-17 12:08 | Diagnostic Imaging Report ---
PROCEDURE:CHEST SINGLE (NOT PORTABLE) TECHNIQUE:PA chest totaling 2 radiographs INDICATION:Chest pain COMPARISON:None. FINDINGS: Lungs are clear and symmetrically inflated. No pleural effusions. Normal heart size mediastinal contour. Sternotomy wires. Low cervical fusion hardware. Grossly intact skeleton. CONCLUSION: No acute abnormality. Dictated by: Bird Bower M.D. on 01/17/2018 at 12:11 Electronically approved by: Bird Bower M.D. on 01/17/2018 at 12:11
[2018-01-17] MEDS ORDERED: ONDANSETRON HCL INJ 2 MG/ML VIAL IV STA (13:10)
[2018-01-17] MEDS ORDERED: MORPHINE SULFATE 4 MG/ML SYR IV PRN (13:15)
[2018-01-17] MEDS ORDERED: MORPHINE SULFATE 2 MG/ML SYR IV PRN (13:30)
[2018-01-17 15:28] LABS: CREATINE KINASE 64 IU/L (30-200)
== END 2018-01-17 17:08 | disposition home or self-care (01) ==
LOC: ER 10:56
DX: M94.0 Chondrocostal junction syndrome [Tietze] (principal); Z88.6 Allergy status to analgesic agent; Z88.5 Allergy status to narcotic agent; Z88.8 Allergy status to other drugs, medicaments and biological substances
CPT/HCPCS: 36415; 71045; 80053; 82550; 82553; 84484; 85025; 85379; 85610; 93005; 99284; J2270; J2405

== ENCOUNTER 2018-04-13 22:38 | Observation (INO) | payer MEDICARE ==
[~2018-04-13] VITALS: Ht 175.3 cm; Wt 87.5 kg
[2018-04-13] MEDS ORDERED: ASPIRIN 81 MG CHEW TAB PO ONE (23:15)
[2018-04-13 23:31] LABS: BASOPHILS # (AUTO) 0.1 (0.0-0.1); BASOPHILS % 0.6 % (0.0-1.0); EOSINOPHILS # (AUTO) 0.3 (0.0-0.4); EOSINOPHILS % 3.1 % (0.0-6.0); HEMATOCRIT 37.3 % (38.2-49.6); HEMOGLOBIN 12.5 g/dL (14.0-18.0); LYMPHOCYTES # (AUTO) 1.7 (1.0-3.2); LYMPHOCYTES % 18.9 % (18.0-39.1); MEAN CORPUSCULAR HEMOGLOBIN 33.2 pg (28-32); MEAN CORPUSCULAR HGB CONC 33.5 g/dL (31-35); MEAN CORPUSCULAR VOLUME 98.9 fL (81-99); MONOCYTES # (AUTO) 0.7 (0.2-0.8); MONOCYTES % 8.4 % (4.4-11.3); NEUTROPHILS % 68.4 % (38.7-80.0); PLATELET COUNT 130 x10e3/uL (140-360); RED BLOOD COUNT 3.77 x10e6/uL (4.3-5.7); RED CELL DISTRIBUTION WIDTH 12.6 % (11.7-14.4)
[2018-04-13 23:48] LABS: ALBUMIN 3.5 g/dL (3.5-5.0); ALBUMIN/GLOBULIN RATIO 1.4 (0.8-2.0); ANION GAP 14.2 mmol/L (8-16); CALCIUM 9.7 mg/dL (8.4-10.2); CREATININE, SERUM 1.5 mg/dL (0.72-1.25); MAGNESIUM 1.9 MG/DL (1.3-2.1); POTASSIUM 4.2 mmol/L (3.5-5.1)
--- NOTE | 2018-04-13 23:54 | Diagnostic Imaging Report ---
CHEST SINGLE (PORTABLE), 04/13/2018 11:11 PM Technique: CHEST SINGLE (PORTABLE) Comparison: 01/11/2018. Clinical history: \S\Chest pain, look for CHF, enlarge Mediastinum \S\[id number] \S\2329 Findings: See Impression Impression: 1. Likely stable cardiomediastinal silhouette given portable technique. Superior median sternotomy wires. 2. Low lung volumes result in bibasilar vascular crowding/atelectasis. If there is concern for aspiration/infection, recommend repeat upright PA and lateral with improved inspiratory effort. 3. No effusion or pneumothorax. Signed by: Dr Bina Rob MD on 04/13/2018 11:50 PM
[2018-04-13 23:55] LABS: CREATINE KINASE MB 0.9 ng/mL (0-5.0)
[2018-04-14] MEDS ORDERED: SODIUM CHLORIDE FLUSH 10 ML SYR INJ PRN
[2018-04-14] MEDS ORDERED: CLONIDINE HCL 0.1 MG TAB PO PRN
[2018-04-14] MEDS ORDERED: ACETAMINOPHEN 325 MG TAB PO PRN
[2018-04-14] MEDS ORDERED: IBUPROFEN 200 MG TAB PO PRN
[2018-04-14] MEDS ORDERED: ZOLPIDEM TARTRATE 5 MG TAB PO PRN
[2018-04-14] MEDS ORDERED: DIPHENHYDRAMINE HCL 25 MG CAP PO PRN
[2018-04-14] MEDS ORDERED: ENALAPRILAT IV INJ 1.25 MG/ML VIAL IV PRN
[2018-04-14] MEDS ORDERED: ONDANSETRON HCL INJ 2 MG/ML VIAL IV PRN
[2018-04-14] MEDS ORDERED: FLUOXETINE HCL10 MG PO ×2 (00:56→00:59)
[2018-04-14] MEDS ORDERED: DONEPEZIL HCL5 MG PO ×2 (00:56→00:59)
[2018-04-14] MEDS ORDERED: CARBIDOPA-LEVO1 EAC1 PO ×2 (00:56→00:59)
[2018-04-14] MEDS ORDERED: LOSARTAN POTAS100 MG PO ×2 (00:56→00:59)
[2018-04-14] MEDS ORDERED: GABAPENTIN300 MG PO ×2 (00:56→00:59)
[2018-04-14] MEDS ORDERED: LEVOTHYROXINE50 MCG PO ×2 (00:56→00:59)
[2018-04-14] MEDS ORDERED: HYDROCODONE/APAP 5MG-325MG TAB PO PRN (06:00)
[2018-04-14 08:03] LABS: CREATINE KINASE MB 0.8 ng/mL (0-5.0)
[2018-04-14] MEDS ORDERED: FAMOTIDINE 20 MG TAB PO SCH ×2 (09:00)
[2018-04-14] MEDS ORDERED: ASPIRIN 325 MG TAB EC PO SCH (09:00)
[2018-04-14] MEDS ORDERED: PREDNISONE 20 MG TAB PO ONE (13:50)
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
[2018-04-14] MEDS ORDERED: GABAPENTIN 300 MG CAP PO SCH (15:00)
[2018-04-14] MEDS ORDERED: CARBIDOPA/LEVODOPA 25/100 TAB PO SCH (15:00)
[2018-04-14 15:06] LABS: CREATINE KINASE MB 1.4 ng/mL (0-5.0)
[2018-04-14 16:30] VITALS: BP 131/70
[2018-04-14 16:50] VITALS: BP 145/85
[2018-04-14 17:15] VITALS: BP 131/70
[2018-04-14 17:16] VITALS: BP 131/70
[2018-04-15] MEDS ORDERED: LEVOTHYROXINE SODIUM 50 MCG TAB PO SCH (06:00)
[2018-04-15] MEDS ORDERED: FLUOXETINE HCL 10 MG CAP PO SCH (09:00)
[2018-04-15] MEDS ORDERED: LOSARTAN POTASSIUM 100 MG TAB PO SCH (09:00)
== END 2018-04-14 18:29 | disposition left against medical advice (07) ==
LOC: ER 22:38 → ERHOLD 23:58 → IMCU 04-14 15:17
PROVIDERS: ADMIT Internal Medicine; ATTEND Internal Medicine
DX: R07.89 Other chest pain (principal); G20 Parkinson's disease; I10 Essential (primary) hypertension; F32.9 Major depressive disorder, single episode, unspecified; E78.5 Hyperlipidemia, unspecified; F03.90 Unspecified dementia, unspecified severity, without behavioral disturbance, psychotic disturbance, mood disturbance, and anxiety
CPT/HCPCS: 36415 ×2; 71045; 80053; 82550 ×2; 82553 ×2; 83735; 83880; 84484 ×2; 85025; 85379; 93005; 93306; G0378 ×2

== ENCOUNTER → 2018-05-30 | Emergency (ER) | payer MEDICARE ==
[~2018-05-30] VITALS: Ht 175.3 cm; Wt 87.5 kg
[~2018-05-30] MED LIST changes: +CARBIDOPA-LEVO1 EAC1 PO; +CARBIDOPA/LEVODOPA 25/100 TAB ONE; +CARBIDOPA/LEVODOPA 25/100 TAB PO STA; +COMBIGAN EYE DRO5 ML OU; +DONEPEZIL HCL5 MG PO; +FLUOXETINE HCL10 MG PO; +GABAPENTIN300 MG PO; +LATANOPROST2.5 ML OU; +LEVOTHYROXINE50 MCG PO; +LOSARTAN POTAS100 MG PO; +OXYBUTYNIN CHLOR5 M1 PO
--- OUTSIDE RECORDS SUMMARY | 2018-05-30 00:56 | XMS REPORT | Summary of Care ---
Author Karen Padilla Unknown Address [facility] Phone Unavailable Care Team Providers Care Slate Worker Name Role Phone KRISTA Mayo, RAMBO CHAPMAN M.D., SERGIO Unavailable Unavailable KRISTA LUGO [place], RAMOB SEVILLA Unavailable Unavailable KAILA Mayo, LEE Unavailable [...] for vaccination with 13-polyvalent pneumococcal conjugate vaccine (V03.82, Z23) Status: Active Bilateral impacted cerumen (380.4, [...] with stage 3 chronic kidney disease (403.90, I12.9) Status: Active Persistent cough (786.2, R05) Status: [...] Zoster (Zostavax) on: 04-Oct-2012 Influenza Comments: Approx [id number] Influenza Comments: Approx [id number] Influenza Comments: Approx [id number] Prevnar 13 Intramuscular Suspension Lot #: [id number] on: 18-Aug-2016 Fluzone High-Dose 0.5 ML Intramuscular Suspension Prefilled Syringe Lot #: [id number] on: 20-Apr-2017 Family History Name Dates Details Family history of FH Unobtainable - Patient Adopted Comments: Family History Status: Active Social History Name Dates Details - Status: Name Dates Details Never smoker Vital Signs Date Test Result Details 25-Out-56000:17 BP Systolic 138 mm[Hg] Status: Comments: Location: [...] /min Status: Respiration Rate 18 /min Status: 08-Wtg-902193:31 Physical Findings 20 Status: Comments: PHQ-9 Adult [...]
== END | disposition home or self-care (01) ==
LOC: ER 00:52
DX: G20 Parkinson's disease (principal); I10 Essential (primary) hypertension
CPT/HCPCS: 99282

== ENCOUNTER 2018-06-25 02:09 | Emergency (ER) | payer MEDICARE ==
[~2018-06-25] VITALS: Ht 175.3 cm; Wt 87.5 kg
[~2018-06-25 02:09] MED LIST changes: -CARBIDOPA/LEVODOPA 25/100 TAB ONE; -CARBIDOPA/LEVODOPA 25/100 TAB PO STA; -COMBIGAN EYE DRO5 ML OU; -LATANOPROST2.5 ML OU; -OXYBUTYNIN CHLOR5 M1 PO
[2018-06-25 02:25] LABS: BASOPHILS # (AUTO) 0.1 (0.0-0.1); BASOPHILS % 0.8 % (0.0-1.0); EOSINOPHILS # (AUTO) 0.3 (0.0-0.4); HEMATOCRIT 37.7 % (38.2-49.6); HEMOGLOBIN 12.5 g/dL (14.0-18.0); LYMPHOCYTES # (AUTO) 1.6 (1.0-3.2); LYMPHOCYTES % 17.1 % (18.0-39.1); MEAN CORPUSCULAR HEMOGLOBIN 33.1 pg (28-32); MEAN CORPUSCULAR HGB CONC 33.2 g/dL (31-35); MEAN CORPUSCULAR VOLUME 99.7 fL (81-99); MONOCYTES # (AUTO) 0.7 (0.2-0.8); MONOCYTES % 7.4 % (4.4-11.3); NEUTROPHILS # (AUTO) 6.5 (2.1-6.9); NEUTROPHILS % 70.6 % (38.7-80.0); PLATELET COUNT 144 x10e3/uL (140-360); RED BLOOD COUNT 3.78 x10e6/uL (4.3-5.7)
[2018-06-25] MEDS ORDERED: LATANOPROST2.5 ML OU (02:26)
[2018-06-25] MEDS ORDERED: OXYBUTYNIN CHLOR5 M1 PO (02:26)
[2018-06-25] MEDS ORDERED: COMBIGAN EYE DRO5 ML OU (02:26)
[2018-06-25 02:44] LABS: BILIRUBIN,URINE NEGATIVE (NEGATIVE); CLARITY,URINE CLEAR (CLEAR); COLOR,URINE YELLOW (YELLOW); KETONES,URINE NEGATIVE (NEGATIVE); LEUKOCYTE ESTERASE ,URINE NEGATIVE (NEGATIVE); NITRITE,URINE NEGATIVE (NEGATIVE); PROTEIN,URINE DIPSTICK 2+ (NEGATIVE); URINE UROBILINOGEN 0.2 mg/dL (0.2 - 1)
[2018-06-25 02:44] LABS: ALBUMIN 3.7 g/dL (3.5-5.0); ALBUMIN/GLOBULIN RATIO 1.5 (0.8-2.0); ALKALINE PHOSPHATASE 107 IU/L (40-150); ANION GAP 16.1 mmol/L (8-16); BLOOD UREA NITROGEN 23 mg/dL (7-26); BUN/CREATININE RATIO 17 (6-25); CALCIUM 9.7 mg/dL (8.4-10.2); CARBON DIOXIDE 25 mmol/L (22-29); CHLORIDE 106 mmol/L (98-107); CREATINE KINASE 70 IU/L (30-200); CREATININE, SERUM 1.36 mg/dL (0.72-1.25); EST GLOMERULAR FILTRATION RATE 50 ML/MIN (60-); GLUCOSE 109 mg/dL (74-118); POTASSIUM 4.1 mmol/L (3.5-5.1); SODIUM 143 mmol/L (136-145)
[2018-06-25 02:45] LABS: EPITHELIAL CELLS,URINE FEW /LPF; RBC,URINE 0-5 /HPF (0-5); WBC,URINE (MAN) 0-5 /HPF (0-5)
[2018-06-25 02:45] LABS: ALANINE AMINOTRANSFERASE < 6 IU/L (0-55)
[2018-06-25 02:52] LABS: B-TYPE NATRIURETIC PEPTIDE2 44.3 pg/mL (0-100)
--- NOTE | 2018-06-25 03:26 | Diagnostic Imaging Report ---
EXAM: CHEST SINGLE (PORTABLE), AP 1 view INDICATION: Shortness of breath COMPARISON: AP view of the chest April 13, 2018 FINDINGS: LINES/TUBES: None LUNGS: No consolidations or edema. PLEURA: No effusions or pneumothorax. HEART AND MEDIASTINUM: Normal size and contour. BONES AND SOFT TISSUES: No acute findings. Stable median sternotomy wires. Lower cervical spine surgical hardware. IMPRESSION: No acute thoracic abnormality. Signed by: Dr. Annette Melvin M.D. on 06/25/2018 3:22 AM
[2018-06-25 03:41] VITALS: BP 145/82
== END 2018-06-25 03:40 | disposition home or self-care (01) ==
LOC: ER 02:09
DX: R06.09 Other forms of dyspnea (principal); M79.89 Other specified soft tissue disorders; G20 Parkinson's disease; F02.80 Dementia in other diseases classified elsewhere, unspecified severity, without behavioral disturbance, psychotic disturbance, mood disturbance, and anxiety; I10 Essential (primary) hypertension; E03.9 Hypothyroidism, unspecified; E78.5 Hyperlipidemia, unspecified; Z85.46 Personal history of malignant neoplasm of prostate
CPT/HCPCS: 36415; 71045; 80053; 81001; 82550; 82553; 83605; 83880; 84484; 85025; 87040; 93005; 99284

== ENCOUNTER 2018-08-15 13:34 | Emergency (ER) | payer MEDICARE ==
[~2018-08-15] VITALS: Ht 175.3 cm; Wt 91.6 kg
[~2018-08-15 13:34] MED LIST changes: +COMBIGAN EYE DRO5 ML OU; +LATANOPROST2.5 ML OU; +OXYBUTYNIN CHLOR5 M1 PO
--- NOTE | 2018-08-15 14:15 | NUR ---
RECEIVED REPORT FROM NOHELIA KWON TO ASSUME PTS CARE. PT BROUGHT VIA W/C FROM TRIAGE INTO ER 11. AT BEDSIDE. PT AA&OX2. CONFUSED TO DATE AND TIME. PT EXTREMELY WEAK. REQUIRED MUCH ASSISTANCE GETTING OUT OF THE W/C ONTO THE STRETCHER. PT GOWNED AND PLACED ON THE MONITOR
[2018-08-15 14:26] LABS: BASOPHILS # (AUTO) 0.1 (0.0-0.1); BASOPHILS % 0.7 % (0.0-1.0); EOSINOPHILS # (AUTO) 0.1 (0.0-0.4); EOSINOPHILS % 0.7 % (0.0-6.0); HEMATOCRIT 39.8 % (38.2-49.6); HEMOGLOBIN 13.8 g/dL (14.0-18.0); LYMPHOCYTES # (AUTO) 0.8 (1.0-3.2); MEAN CORPUSCULAR HEMOGLOBIN 33.7 pg (28-32); MEAN CORPUSCULAR HGB CONC 34.7 g/dL (31-35); MEAN CORPUSCULAR VOLUME 97.3 fL (81-99); MONOCYTES # (AUTO) 0.4 (0.2-0.8); MONOCYTES % 4.1 % (4.4-11.3); NEUTROPHILS # (AUTO) 9.3 (2.1-6.9); NEUTROPHILS % 86.2 % (38.7-80.0); PLATELET COUNT 178 x10e3/uL (140-360); RED BLOOD COUNT 4.09 x10e6/uL (4.3-5.7); RED CELL DISTRIBUTION WIDTH 13.2 % (11.7-14.4)
[2018-08-15 14:37] LABS: INR 0.91; PARTIAL THROMBOPLASTIN TIME 25.2 seconds (23.8-35.5); PROTHROMBIN TIME 13.1 seconds (11.9-14.5)
[2018-08-15 14:44] LABS: ALBUMIN 3.5 g/dL (3.5-5.0); ALBUMIN/GLOBULIN RATIO 1.3 (0.8-2.0); ALKALINE PHOSPHATASE 122 IU/L (40-150); ANION GAP 13.9 mmol/L (8-16); BLOOD UREA NITROGEN 17 mg/dL (7-26); BUN/CREATININE RATIO 14 (6-25); CALCIUM 9.7 mg/dL (8.4-10.2); CARBON DIOXIDE 25 mmol/L (22-29); CHLORIDE 100 mmol/L (98-107); CREATINE KINASE 108 IU/L (30-200); CREATININE, SERUM 1.25 mg/dL (0.72-1.25); EST GLOMERULAR FILTRATION RATE 55 ML/MIN (60-); GLUCOSE 172 mg/dL (74-118); POTASSIUM 3.9 mmol/L (3.5-5.1); SODIUM 135 mmol/L (136-145)
[2018-08-15 14:49] LABS: ALANINE AMINOTRANSFERASE < 6 IU/L (0-55)
--- NOTE | 2018-08-15 15:34 | Diagnostic Imaging Report ---
History:Right side temporal headache Comparison studies:CT head 07/08/2017 Technique: Axial images were obtained from the skull base to the vertex. Coronal and sagittal images reconstructed from the axial data. Intravenous contrast: None Dose modulation, iterative reconstruction, and/or weight based adjustment of the mA/kV was utilized to reduce the radiation dose to as low as reasonably achievable. Findings: Scalp/skull: No abnormalities. Extra-axial spaces: No masses. No fluid collections. Brain sulci: Mildly prominent. Ventricles: Mild compensatory dilatation. No hydrocephalus. Parenchyma: Scattered and confluent hypodensities in the supratentorial white matter are small vessel ischemic changes. No masses, hemorrhage, acute or chronic cortical vascular insults. Sellar/suprasellar region: No abnormalities. Craniocervical junction: Patent foramen magnum. No Chiari one malformation. Incidental findings: Atherosclerotic calcifications in the carotid siphons . Stable left sphenoid sinus chronic sinusitis Impression: No acute abnormalities. No significant change from previous examination. Chronic findings: 1. Mild generalized volume loss. 2. Moderate supratentorial white matter small vessel ischemic changes. 3. Left sphenoid chronic sinusitis Signed by: DR Sergio Dumont M.D. on 08/15/2018 3:30 PM
[2018-08-15] MEDS ORDERED: KETOROLAC TROMETHAMINE 30 MG/ML VIAL IV STA (15:42)
[2018-08-15 16:46] VITALS: BP 147/78
== END 2018-08-15 16:38 | disposition home or self-care (01) ==
LOC: ER 13:34
DX: G44.209 Tension-type headache, unspecified, not intractable (principal); G43.109 Migraine with aura, not intractable, without status migrainosus
CPT/HCPCS: 36415; 70450; 80053; 82550; 82553; 84484; 85025; 85610; 85730; 93005; 99284; J1885

== ENCOUNTER 2018-09-15 23:53 | Inpatient (IN) | payer MEDICARE ==
[~2018-09-15] VITALS: Ht 175.3 cm; Wt 82.8 kg
[2018-09-16] VITALS (28 sets, daily range): BP systolic 90–173; BP diastolic 57–94
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
[2018-09-16] MEDS ORDERED: SODIUM CHLORIDE 0.9% 250ML 250 ML IV ONE (01:45)
[2018-09-16] MEDS ORDERED: FERROUS SULFAT325 MG PEG (01:54)
[2018-09-16 01:56] LABS: BASOPHILS % 0.3 % (0.0-1.0); EOSINOPHILS # (AUTO) 0.2 (0.0-0.4); EOSINOPHILS % 1.3 % (0.0-6.0); HEMATOCRIT 23.9 % (38.2-49.6); HEMOGLOBIN 7.9 g/dL (14.0-18.0); LYMPHOCYTES # (AUTO) 1.5 (1.0-3.2); LYMPHOCYTES % 9.9 % (18.0-39.1); MEAN CORPUSCULAR HEMOGLOBIN 30.4 pg (28-32); MEAN CORPUSCULAR HGB CONC 33.1 g/dL (31-35); MEAN CORPUSCULAR VOLUME 91.9 fL (81-99); MONOCYTES % 6.7 % (4.4-11.3); NEUTROPHILS # (AUTO) 11.9 (2.1-6.9); PLATELET COUNT 359 x10e3/uL (140-360); RED CELL DISTRIBUTION WIDTH 15.3 % (11.7-14.4)
[2018-09-16 02:06] LABS: ALBUMIN/GLOBULIN RATIO 0.6 (0.8-2.0); ANION GAP 13.9 mmol/L (8-16); CALCIUM 8.6 mg/dL (8.4-10.2); CREATININE, SERUM 1.42 mg/dL (0.72-1.25); POTASSIUM 3.9 mmol/L (3.5-5.1)
[2018-09-16] MEDS ORDERED: MULTIVITAMINS1 EAC6 PEG (02:06)
[2018-09-16] MEDS ORDERED: AMLODIPINE BESY10 MG PO (02:06)
[2018-09-16] MEDS ORDERED: CALCIUM 500+D1 EACH PEG (02:06)
[2018-09-16] MEDS ORDERED: CHLORTHALIDONE50 MG PEG (02:06)
[2018-09-16] MEDS ORDERED: BISCOLAX10 MG RC (02:06)
[2018-09-16] MEDS ORDERED: DOCUSATE SODIU100 MG PEG (02:06)
[2018-09-16] MEDS ORDERED: ONDANSETRON2 MG/1 ML IV (02:06)
[2018-09-16] MEDS ORDERED: OXYCODONE-ACET1 EAC1 PEG (02:06)
[2018-09-16] MEDS ORDERED: BACLOFEN10 MG PEG (02:06)
[2018-09-16] MEDS ORDERED: FAMOTIDINE10 MG PEG (02:06)
[2018-09-16] MEDS ORDERED: ACETAMINOP325 MG/10 PEG (02:06)
[2018-09-16] MEDS ORDERED: LANTUS 3ML100 UNITS/ SQ (02:06)
[2018-09-16] MEDS ORDERED: LABETALOL HCL200 MG PEG (02:06)
[2018-09-16] MEDS ORDERED: RIVASTIGMINE1.5 MG PEG (02:06)
[2018-09-16] MEDS ORDERED: RIVASTIGMINE4.5 MG PEG (02:06)
[2018-09-16] MEDS ORDERED: FUROSEMIDE40 MG/4 ML IV (02:06)
[2018-09-16] MEDS ORDERED: COMTAN200 MG PEG (02:06)
[2018-09-16] MEDS ORDERED: BACLOFEN 10 MG TAB PEG SCH (02:15)
[2018-09-16] MEDS ORDERED: FAMOTIDINE 10 MG PEG SCH (02:15)
[2018-09-16] MEDS ORDERED: DOCUSATE SODIUM 100 MG CAP PEG SCH (02:15)
[2018-09-16] MEDS ORDERED: BISACODYL 10 MG SUPP PR PRN (02:15)
[2018-09-16] MEDS ORDERED: LABETALOL HCL 200 MG TAB PEG SCH (02:15)
[2018-09-16] MEDS ORDERED: RIVASTIGMINE TARTRATE 1.5 MG CAP PEG SCH ×2 (02:15→09:00)
[2018-09-16] MEDS ORDERED: RIVASTIGMINE TARTRATE 4.5 MG PEG SCH (02:15)
[2018-09-16] MEDS ORDERED: ONDANSETRON HCL INJ 2MG/ML 2ML 2 MG/ML VIAL IV PRN (02:45)
[2018-09-16] MEDS: OXYCODONE/ACETAMINOPHEN 5-325 1 EACH TABLET PEG PRN ×3 (03:18→21:59)
[2018-09-16] MEDS: ENTACAPONE 200 MG PEG SCH ×2 (05:05→12:00)
--- NOTE | 2018-09-16 05:36 | NUR ---
CONSULT CALLED TO DR DR RICH ANSWERING SERVICE - SPOKE TO ENMA
[2018-09-16] MEDS ORDERED: NON-FORMULARY MEDICATION (Entacapone (Comtan) 200 MG) PEG SCH (06:00)
[2018-09-16] MEDS: CARBIDOPA/LEVODOPA 25/100 TAB PO SCH ×3 (06:05→18:00)
[2018-09-16] MEDS ORDERED: BISACODYL 5 MG TAB EC PO NR (08:45)
[2018-09-16] MEDS ORDERED: PEG (High)/E-LYTE SOLN 4,000 ML BTL GT NR (08:45)
[2018-09-16] MEDS: DOCUSATE SODIUM 100 MG CAP PEG SCH ×2 (09:00→21:00)
[2018-09-16] MEDS: MULTIVITAMINS/MINERALS TAB PEG SCH (09:00)
[2018-09-16] MEDS: CALCIUM CARBONATE 500 MG CHEWABLE TABS PEG SCH (09:00)
[2018-09-16] MEDS: FERROUS SULFATE 325 MG TAB PEG SCH ×2 (09:00→17:00)
[2018-09-16] MEDS: LEVOTHYROXINE SODIUM 50 MCG TAB PO SCH (09:00)
[2018-09-16] MEDS: DONEPEZIL HCL 5 MG TAB PO SCH (09:00)
[2018-09-16] MEDS ORDERED: CHLORTHALIDONE 50 MG PEG SCH ×2 (09:00)
[2018-09-16] MEDS ORDERED: NON-FORMULARY MEDICATION (Furosemide 40 MG) IV SCH (09:00)
[2018-09-16] MEDS: LABETALOL HCL 200 MG TAB PEG SCH ×2 (09:00→21:00)
[2018-09-16] MEDS: AMLODIPINE BESYLATE 10 MG TAB PO SCH (09:00)
[2018-09-16] MEDS ORDERED: FAMOTIDINE 20 MG TAB GT SCH (09:00)
[2018-09-16] MEDS: BACLOFEN 10 MG TAB PEG SCH ×2 (09:00→21:00)
[2018-09-16] MEDS: FUROSEMIDE INJ 10 MG/ML 4 ML VIAL IV SCH (09:24)
[2018-09-16] MEDS: BRIMONIDINE/TIMOLOL (OPTH SOLN 5 ML DRPETTE OP SCH ×2 (10:20→18:02)
[2018-09-16] MEDS: PANTOPRAZOLE 40 MG 10ML VIAL IV SCH ×2 (10:36→18:02)
--- NOTE | 2018-09-16 12:24 | Consultation ---
DATE OF CONSULTATION: September 16, 2018 HPI: This is 83 years old who has a history of renal disease, diabetes, history of subdural hematoma, history of Parkinson's disease, and history of rectal ulcer, was transferred from [place] last night because of significant rectal bleeding. He also was found to have anemia with hemoglobin as low as 7.9. He is being transfused at this point. As per his , he apparently has a history of rectal ulcers in the past. MEDICAL PROBLEMS: Significant for hypertension, diabetes, Parkinson's, BPH, coronary artery disease, subdural hematoma. ALLERGIES: CODEINE, IODINE, AND TRAMADOL. CURRENT MEDICATIONS: Sinemet, currently on Protonix, labetalol, Colace, baclofen, Lasix, rivastigmine, and eye drops. SOCIAL HISTORY: No alcohol use. FAMILY HISTORY: Noncontributory. REVIEW OF SYSTEMS: At this point as per , there is no abdominal pain, no nausea, no vomiting along with the problem. PHYSICAL EXAMINATION GENERAL: Patient is lying in bed, noncommunicative. VITAL SIGNS: Afebrile. HEENT: Normocephalic and atraumatic. HEART: Regular. LUNGS: Clear. ABDOMEN: Soft. No distention at this point. EXTREMITIES: No cyanosis. No clubbing. LAB VALUES: WBC is 15.02, hemoglobin 7.9, hematocrit 23.9. BUN of 50, creatinine of 1.42. IMPRESSION 1. Gastrointestinal bleed, rectal bleeding again. Patient has a history of rectal ulcer. Very likely is prominent ulcers again. 2. History of subdural hematoma. 3. Hypertension. 4. Parkinson's. RECOMMENDATIONS: Proceed with repeat colonoscopy for further evaluation. His agrees and wants to proceed with that. follow labs. Job#: [id number] DEEPA cc:DR. KRISTA ALVARADO
[2018-09-16] MEDS: CHLORTHALIDONE 25 MG TAB PEG SCH (14:30)
[2018-09-16 17:36] LABS: HEMATOCRIT 30.7 % (38.2-49.6); HEMOGLOBIN 10.3 g/dL (14.0-18.0)
[2018-09-16] MEDS: [UNRECOGNIZED DRUG - OTHER] PEG SCH ×2 (18:00→23:03)
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
[2018-09-16] MEDS ORDERED: INSULIN DETEMIR 100 UNIT/ML PEN SQ SCH (21:00)
[2018-09-16] MEDS: INSULIN GLARGINE 100 UNITS/ML VIAL SQ SCH (21:00)
[2018-09-16] MEDS: LATANOPROST(OPTH) 2.5 ML BTL OU SCH (21:05)
[2018-09-17] VITALS (23 sets, daily range): BP systolic 97–147; BP diastolic 58–90
[2018-09-17] MEDS: CARBIDOPA/LEVODOPA 25/100 TAB PO SCH ×4 (00:18→18:19)
[2018-09-17] MEDS: OXYCODONE/ACETAMINOPHEN 5-325 1 EACH TABLET PEG PRN ×3 (02:01→20:00)
[2018-09-17] MEDS: LORAZEPAM INJ 2 MG/ML VIAL IV PRN ×2 (04:18→17:00)
[2018-09-17 05:07] LABS: BASOPHILS # (AUTO) 0.1 (0.0-0.1); BASOPHILS % 0.6 % (0.0-1.0); EOSINOPHILS # (AUTO) 0.2 (0.0-0.4); EOSINOPHILS % 1.5 % (0.0-6.0); HEMATOCRIT 31.7 % (38.2-49.6); HEMOGLOBIN 10.4 g/dL (14.0-18.0); LYMPHOCYTES # (AUTO) 1.4 (1.0-3.2); MEAN CORPUSCULAR HEMOGLOBIN 30.3 pg (28-32); MEAN CORPUSCULAR HGB CONC 32.8 g/dL (31-35); MEAN CORPUSCULAR VOLUME 92.4 fL (81-99); MONOCYTES % 7.9 % (4.4-11.3); NEUTROPHILS # (AUTO) 9.5 (2.1-6.9); NEUTROPHILS % 76.2 % (38.7-80.0); PLATELET COUNT 310 x10e3/uL (140-360); RED BLOOD COUNT 3.43 x10e6/uL (4.3-5.7); RED CELL DISTRIBUTION WIDTH 14.6 % (11.7-14.4)
[2018-09-17 05:36] LABS: ANION GAP 16.9 mmol/L (8-16); CREATININE, SERUM 1.33 mg/dL (0.72-1.25); POTASSIUM 3.9 mmol/L (3.5-5.1)
[2018-09-17 07:18] LABS: LYMPHOCYTES % (MANUAL) 11 % (19-48); METAMYELOCYTES % (MANUAL) 2 % (0-0); MONOCYTES % (MANUAL) 10 % (3.4-9.0); MYELOCYTES % (MANUAL) 2 % (0-0); NEUTROPHILS % (MANUAL) 75 % (40-74); PLATELET MORPHOLOGY COMMENT RARE EDTA CLUMPING
[2018-09-17 07:19] LABS: ANISOCYTOSIS SLIGHT; PLATELET ESTIMATE ADEQUATE; RBC MORPHOLOGY COMMENT NORMAL
[2018-09-17] MEDS: CHLORTHALIDONE 25 MG TAB PEG SCH (09:00)
[2018-09-17] MEDS: MULTIVITAMINS/MINERALS TAB PEG SCH (09:00)
[2018-09-17] MEDS: CALCIUM CARBONATE 500 MG CHEWABLE TABS PEG SCH (09:00)
[2018-09-17] MEDS: AMLODIPINE BESYLATE 10 MG TAB PO SCH (09:00)
[2018-09-17] MEDS: LABETALOL HCL 200 MG TAB PEG SCH ×2 (09:00→20:35)
[2018-09-17] MEDS: DONEPEZIL HCL 5 MG TAB PO SCH (09:00)
[2018-09-17] MEDS: FERROUS SULFATE 325 MG TAB PEG SCH ×2 (09:00→17:00)
[2018-09-17] MEDS: LEVOTHYROXINE SODIUM 50 MCG TAB PO SCH (09:00)
[2018-09-17] MEDS: DOCUSATE SODIUM 100 MG CAP PEG SCH ×2 (09:00→20:35)
[2018-09-17] MEDS: BACLOFEN 10 MG TAB PEG SCH ×2 (09:00→20:35)
[2018-09-17] MEDS: BRIMONIDINE/TIMOLOL (OPTH SOLN 5 ML DRPETTE OP SCH ×2 (10:14→18:19)
[2018-09-17] MEDS: FUROSEMIDE INJ 10 MG/ML 4 ML VIAL IV SCH (10:14)
[2018-09-17] MEDS: PANTOPRAZOLE 40 MG 10ML VIAL IV SCH ×2 (10:14→17:00)
[2018-09-17] MEDS: [UNRECOGNIZED DRUG - OTHER] PEG SCH ×2 (12:00→17:30)
--- NOTE | 2018-09-17 12:41 | Diagnostic Imaging Report ---
EXAMINATION: CHEST SINGLE (PORTABLE) INDICATION: Coughing, hypoxia. COMPARISON: Chest radiograph 06/25/2018. FINDINGS: TUBES and LINES: None. LUNGS: Moderate lung volumes. Interval development of multifocal consolidative opacities involving the right mid and bilateral lower lung zones. Perihilar and interstitial opacities. PLEURA: Possible small right pleural effusion. No evidence of pneumothorax. HEART AND MEDIASTINUM: The cardiomediastinal silhouette is unremarkable. BONES AND SOFT TISSUES: No acute osseous abnormality. Status post median sternotomy. Partially seen lower cervical spine fixation hardware. UPPER ABDOMEN: No free air under the diaphragm. IMPRESSION: Multifocal consolidative and interstitial opacities which could represent multifocal pneumonia or pulmonary edema in the appropriate clinical context. Follow-up chest radiograph is suggested. Signed by: Dr. Vikki Martínez MD on 09/17/2018 12:38 PM
--- NOTE | 2018-09-17 13:14 | NUR ---
dr portillo called earlier, asked to give enema. water and a small amount of black stool came out. notified md, he states he will try to do the colonoscopy tomorrow am, don't start feedings, meds only with a small amount of h2o. orders for 2 liters of golytely this evening.
--- NOTE | 2018-09-17 17:22 | NUR ---
Nutrition Screen Note RD Recommendation for Physician: -Rec to start GI soft/ ADA diet as medically appropriate Plan of Care: RD following, monitoring for tolerance and adequacy Nutrition reason for involvement: Nutrition Risk Trigger MST Primary Diagnose(s): GI bleed PMH: hypertension, diabetes, Parkinson's, BPH, coronary artery disease, subdural hematoma. Ht: 69in Wt: 190lb BMI: 28.1kg/m2 IBW: 160lb RD Assessment: (09/17) Chart reviewed. Labs and meds reviewed. 83yo M, who is admitted for GI bleed. Colonoscopy was scheduled for today. Enema was given today. on bedside to provide hx. 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 No recent weight loss noted. No other GI complains noted. 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 Will continue to monitor and follow. Current Diet: NPO Malnutrition Evaluation (09/17/18) The patient does not meet criteria for a specified degree of malnutrition at this time. Will re-evaluate at follow-up as appropriate. Diet Education Needs Assessment: Diet education not indicated. Nutrition Care Level: low Signed: Amparo Gilbert, MS, RD, LD
[2018-09-17] MEDS: LATANOPROST(OPTH) 2.5 ML BTL OU SCH (20:35)
[2018-09-17] MEDS: RIVASTIGMINE TARTRATE 1.5 MG CAP PEG SCH (20:35)
[2018-09-17] MEDS ORDERED: PEG (High)/E-LYTE SOLN 4,000 ML BTL PO ONE (21:00)
[2018-09-17] MEDS: INSULIN GLARGINE 100 UNITS/ML VIAL SQ SCH (21:00)
--- NOTE | 2018-09-17 22:00 | NUR ---
DR REED IN TO SEE PATIENT. COLONOSCOPY CANCELLED, OK TO RESTART TUBE FEEDS AT THIS TIME
--- NOTE | 2018-09-17 22:25 | Progress Note ---
DATE: September 17, 2018 SUBJECTIVE: Patient has not had any bowel movement all day today. He was given GoLYTELY last night. He was given 1 enema and it returned dark brownish fecal fluid. REVIEW OF SYSTEMS: Unobtainable, patient is incoherent and obtunded. MEDICATIONS: Reviewed as per MAR. PHYSICAL EXAMINATION VITAL SIGNS: Temperature 97.6, pulse 57, respirations 14, blood pressure 142/90 to 98/62, and oxygen saturation 98% on 7 L of nasal cannula. GENERAL: Not in any acute distress. Oral mucosa is moist. Anicteric sclerae. ABDOMEN: Soft, nondistended, nontender. No palpable mass or hernia. Positive bowel sounds. PEG site is clear. No bleeding or any discharge. LABS: WBC 12.40; hemoglobin 10.4, up from 10.3; hematocrit 31.7; and platelet count 310,000. Sodium 137, potassium 3.9, chloride 92, bicarb 32, BUN 37, creatinine 1.33, and glucose 86. Chest x-ray on September 17, 2018, showed multifocal consolidative and interstitial opacities which could represent multifocal pneumonia or pulmonary edema in appropriate clinical context. IMPRESSION: No further rectal bleeding. Patient has also not had any bowel movement. Hemoglobin remains stable post transfusion. PLAN 1. I do not think patient is having any active GI bleeding. Resume G-tube feeding. 2. Transfer the patient to the medical floor. 3. No need for any colonoscopy at this time. 4. Switch Protonix to through the PEG tube daily. Job#: [id number]
[2018-09-17] MEDS ORDERED: FUROSEMIDE INJ 10 MG/ML 4 ML VIAL IV ONE (22:45)
[2018-09-17] MEDS ORDERED: POTASSIUM CHLORIDE 20MEQ/15ML UDC NG ONE (22:45)
--- NOTE | 2018-09-17 23:40 | Progress Note ---
DATE: September 17, 2018 PULMONARY MEDICINE PROGRESS NOTE SUBJECTIVE: Mr. Cristobal was seen and examined at bedside. He continues to have slow progress. Gratefully, there is no evidence of any significant GI bleed that has been reactivated. Patient GI bleeding hopefully is stopped for now. He only had a small amount of black stool today, but no red blood. Patient was up all night and talking. However, this morning he is more sleepy. REVIEW OF SYSTEMS: Cannot get reliably as he is altered. OBJECTIVE: VITAL SIGNS: Afebrile, vital signs noted per electronic record. GENERAL: No acute distress, calm, sleeping mostly. at bedside. HEENT: Normocephalic, atraumatic. NECK: Supple. Throat midline. LUNGS: Bilateral air entry, few rhonchi. CARDIOVASCULAR: S1, S2. No murmurs, rubs, or gallops. ABDOMEN: Soft, nontender. EXTREMITIES: No clubbing, no cyanosis, there is still the 1+ edema. INTEGUMENT: No rash, no purpura. LABS: 12 white count, 32 hematocrit, 310,000 platelets. BUN 37, creatinine 1.3. IMPRESSION AND PLAN: 1. Acute lower gastrointestinal bleed, appears to stop. 2. Known 20 mm rectal ulcer, previously bleeding and status post intervention signifying bleed recurrence risk. 3. Abnormal chest radiography, multifocal consolidative and interstitial opacities, possible fluid excess, possible pneumonia. 4. Parkinson's. 5. Encephalopathy, metabolic among other causes. 6. Benign prostatic hypertrophy and obstructive uropathy. 7. Chronic kidney disease. Will give the patient dose of Lasix. Need for colonoscopy or endoscopy per gastroenterology doctors. The patient probably has stopped bleeding for a short time and will let gastroenterology determine the treatment plan. Continue proton pump inhibitors. Patient can leave the intensive care unit for now and will follow up closely. Job#: [id number]
[2018-09-18] VITALS (14 sets, daily range): BP systolic 92–139; BP diastolic 51–78
--- NOTE | 2018-09-18 00:30 | NUR ---
PATIENT VERY AGITATED AND RESTLESSS, THROWING LEGS OUT OF BED BETWEEN RAILS. REPOSITIONED FOR COMFORT, BED ALARM ON AND SET TO ZONE 2
[2018-09-18] MEDS: [UNRECOGNIZED DRUG - OTHER] PEG SCH ×6 (00:46→23:45)
[2018-09-18] MEDS: CARBIDOPA/LEVODOPA 25/100 TAB PO SCH ×5 (00:46→23:58)
[2018-09-18] MEDS: OXYCODONE/ACETAMINOPHEN 5-325 1 EACH TABLET PEG PRN ×3 (00:47→22:26)
[2018-09-18] MEDS: LORAZEPAM INJ 2 MG/ML VIAL IV PRN ×2 (04:30→20:31)
[2018-09-18 05:10] LABS: BASOPHILS # (AUTO) 0.1 (0.0-0.1); BASOPHILS % 0.3 % (0.0-1.0); EOSINOPHILS # (AUTO) 0.2 (0.0-0.4); EOSINOPHILS % 1.3 % (0.0-6.0); HEMATOCRIT 31.8 % (38.2-49.6); HEMOGLOBIN 10.5 g/dL (14.0-18.0); LYMPHOCYTES # (AUTO) 1.1 (1.0-3.2); LYMPHOCYTES % 7.5 % (18.0-39.1); MEAN CORPUSCULAR HEMOGLOBIN 29.9 pg (28-32); MEAN CORPUSCULAR VOLUME 90.6 fL (81-99); MONOCYTES # (AUTO) 1.1 (0.2-0.8); MONOCYTES % 7.8 % (4.4-11.3); NEUTROPHILS # (AUTO) 11.9 (2.1-6.9); NEUTROPHILS % 81.5 % (38.7-80.0); PLATELET COUNT 328 x10e3/uL (140-360); RED BLOOD COUNT 3.51 x10e6/uL (4.3-5.7); RED CELL DISTRIBUTION WIDTH 14.4 % (11.7-14.4)
[2018-09-18] MEDS: LEVOTHYROXINE SODIUM 50 MCG TAB PO SCH (05:36)
[2018-09-18 05:42] LABS: ANION GAP 19.7 mmol/L (8-16); CALCIUM 9.1 mg/dL (8.4-10.2); CREATININE, SERUM 1.44 mg/dL (0.72-1.25); MAGNESIUM 1.6 MG/DL (1.3-2.1); POTASSIUM 3.7 mmol/L (3.5-5.1)
--- NOTE | 2018-09-18 06:40 | Diagnostic Imaging Report ---
EXAMINATION: CHEST SINGLE (PORTABLE) INDICATION: CHF. COMPARISON: Chest radiograph 09/17/2018. FINDINGS: TUBES and LINES: None. LUNGS: Moderate lung volumes. Stable multifocal consolidative opacities involving the right mid and bilateral lower lung zones. Mildly decreased perihilar and interstitial opacities. PLEURA: Possible small right pleural effusion. No evidence of pneumothorax. HEART AND MEDIASTINUM: The cardiomediastinal silhouette is unremarkable. BONES AND SOFT TISSUES: No acute osseous abnormality. Status post median sternotomy. Lower cervical spine fixation hardware. UPPER ABDOMEN: No free air under the diaphragm. IMPRESSION: Multifocal consolidative and interstitial opacities which could represent multifocal pneumonia or pulmonary edema in the appropriate clinical context. Signed by: DR. Kahlil Mohan MD on 09/18/2018 6:37 AM
[2018-09-18] MEDS: PANTOPRAZOLE SOD 40 MG TABEC PO SCH (07:30)
--- NOTE | 2018-09-18 08:47 | NUR ---
LATE ENTRY: 09/17/2018 DISCUSSED PT STATUS IN ROUNDS. SPOKE W DR. ALVARADO REGARDING PT BEING MOVING TO A LOWER LEVEL OF CARE. STATES PT HAD AN ACTIVE BLEED. H/H 10.4/31.7. STATES HE WILL POSSIBLY MOVE AFTER COLONOSCOPY LATER TODAY.
[2018-09-18] MEDS: BRIMONIDINE/TIMOLOL (OPTH SOLN 5 ML DRPETTE OP SCH ×2 (09:00→18:25)
[2018-09-18] MEDS: CALCIUM CARBONATE 500 MG CHEWABLE TABS PEG SCH (09:15)
[2018-09-18] MEDS: CHLORTHALIDONE 25 MG TAB PEG SCH (09:15)
[2018-09-18] MEDS: BACLOFEN 10 MG TAB PEG SCH ×2 (09:15→20:36)
[2018-09-18] MEDS: RIVASTIGMINE TARTRATE 1.5 MG CAP PEG SCH ×2 (09:15→20:36)
[2018-09-18] MEDS: DONEPEZIL HCL 5 MG TAB PO SCH (09:15)
[2018-09-18] MEDS: FERROUS SULFATE 325 MG TAB PEG SCH ×2 (09:15→18:25)
[2018-09-18] MEDS: FUROSEMIDE INJ 10 MG/ML 4 ML VIAL IV SCH (09:15)
[2018-09-18] MEDS: DOCUSATE SODIUM 100 MG CAP PEG SCH ×2 (09:15→20:36)
[2018-09-18] MEDS: AMLODIPINE BESYLATE 10 MG TAB PO SCH (09:15)
[2018-09-18] MEDS: MULTIVITAMINS/MINERALS TAB PEG SCH (09:15)
[2018-09-18] MEDS: LABETALOL HCL 200 MG TAB PEG SCH ×2 (13:08→20:36)
[2018-09-18] MEDS ORDERED: POTASSIUM CHLORIDE 20MEQ/15ML UDC NG ONE (14:00)
--- NOTE | 2018-09-18 14:11 | NUR ---
Nutrition Intervention Note RD Recommendation(s) for Physician: -Continue current TF order of Glucerna 1.5 @60mL/hr (2160kcal, 119g protein and 1100mL water) - meeting 100% of est calorie and protein needs -Water flushes per MD discretion -Check daily labs, weight, and GI tolerance Plan of Care: RD following, monitoring for tolerance and adequacy, TF rec Nutrition reason for involvement: New TF RD Assessment 09/18 - Chart reviewed. Labs and meds reviewed. Pt was discussed during AM rounds. GI bleed has improved. Pt was started on Glucerna 1.5 @60mL/hr (2160kcal, 119g protein and 1100mL water) and free water flushes of 200mL q 6hr via PEG. Visited pt and spoke with his yesterday. didnt mention anything about pt having a PEG placement LAB AID. Current TF order is appropriate. Will continue to monitor and follow. Consult as needed. Principal Problems/Diagnoses: GI bleed PMH: hypertension, diabetes, Parkinson's, BPH, coronary artery disease, subdural hematoma. GI: Abdomen soft, liquid/black stool x2 09/18 Skin: no wound pressure noted Labs: (09/18) BUN 34 H, Creatinine 1.44 H, Glucose 143 H Meds: KCl, colace, lasix, MVi w/minerals, feosol, tums, synthroid Ht: 69in Wt: 190lb BMI: 28.1kg/m2 IBW: 160lb Malnutrition Evaluation (09/17/18) The patient does not meet criteria for a specified degree of malnutrition at this time. Will re-evaluate at follow-up as appropriate. Nutrition Prescription (Diet Order): Glucerna 1.5 @60mL/hr Estimated Nutritional Needs: Calories: 1720 2150kcal(20-25kcal/kg/d) Weight used: Current BW Protein: 86 129g (1-1.5g/kg/d) Weight used: Current BW Diet Adequacy: Meeting calorie needs, Meeting protein needs Diet Education Needs Assessment: Diet education indicated, but patient not appropriate for education at this time. Nutrition Care Level: mod (New TF) Nutrition Diagnosis: Difficulty swallowing related to chronic illness as evidenced by pt requiring EN as main source of nutrition. Goal: Patient will meet 75-100% of estimated needs by follow up Progress: Progressing Interventions: Composition, Rate, Route, IVF Monitoring/Evaluation: Total energy intake, Total protein intake, Formula/Solution, IVF, Weight change, labs, I & O Signed: Amparo Gilbert MS, RD, LD
--- NOTE | 2018-09-18 15:55 | NUR ---
DISCUSSED PT IN ROUNDS. PT FROM [facility]. DEBRA JAMA INQUIRED IF THE PT WAS READY TO RETURN TO [facility] TODAY. BEDSIDE NURSE; PACO, STATES NO ORDER RECEIVED AT THIS TIME. STATES THEY WERE WAITING FOR CHRISTIANO TO ROUND TO ASSESS NEXT LOC TODAY. STATES HE WOULD ASK FOR [facility] ORDER IF APPROPRIATE AT THIS TIME.
--- NOTE | 2018-09-18 16:27 | Progress Note ---
DATE: September 18, 2018 PULMONARY MEDICINE PROGRESS NOTE SUBJECTIVE: Mr. Cristobal was seen and examined at bedside. He is having some low oxygen saturation, 89% oxygen saturation on 40% Ventimask. He is more active right now and moving more, and talking more understandable sentences. He is on Glucerna 1.5 at 60 mL per hour. Simpson with urine output noted. REVIEW OF SYSTEMS: Cannot get reliably as he is still altered. OBJECTIVE VITALS: Afebrile. Vital signs noted per electronic record. GENERAL: No acute distress. Alert and calm, but looks very weak and poor in bed. HEENT: Normocephalic and atraumatic. NECK: Supple. Throat midline. LUNGS: Bilateral air entry. Rare rhonchi, mostly clear. CARDIOVASCULAR: S1 and S2. No murmurs, rubs or gallops. ABDOMEN: Soft and nontender. EXTREMITIES: No clubbing. No cyanosis. There is 1+ leg edema. INTEGUMENT: No rash or purpura. LABS: Potassium 3.7, BUN 34, creatinine 1.4. White count 14, hematocrit 32. IMPRESSION AND PLAN 1. Lower gastrointestinal bleed, appears to have stopped on its own. 2. Known 20 mm rectal ulcer, likely from constipation previously. 3. Abnormal chest radiography, bilateral infiltrates. 4. Fluid overload, steadily improving recently. 5. Pbyuk-es-xwzglgm kidney failure. 6. Parkinson. He already received Lasix this morning. Will give an additional dose of Lasix towards the p.m. Give him some additional potassium. Will follow with GI regarding the risks of rebleeding, which is present. Continue medicines for Parkinson and for blood pressure and other aspects. He should be under high maintenance of aspiration precautions as x-ray is a little bit worse than it was previous without any hemant worsening of edema. This change could have some aspiration events. Follow up closely. Job#: [id number] SHERRY
[2018-09-18] MEDS ORDERED: FUROSEMIDE INJ 10 MG/ML 4 ML VIAL IV ONE (17:30)
--- NOTE | 2018-09-18 18:05 | NUR ---
RECEIVED PT FROM ICU TRANSFERRED TO ROOM 198
[2018-09-18] MEDS: INSULIN GLARGINE 100 UNITS/ML VIAL SQ SCH (20:47)
[2018-09-18] MEDS: LATANOPROST(OPTH) 2.5 ML BTL OU SCH (20:48)
--- NOTE | 2018-09-18 21:02 | NUR ---
GAVE PATIENT BATH, HE WAS TOLERATED FAIR, CONFUSED AND AGITATED; PATIENT HAD LOOSE BOWEL MOVEMENT BLACK GREENISH MODERATE AMOUNT.
[2018-09-19] VITALS (10 sets, daily range): BP systolic 96–133; BP diastolic 47–79
[2018-09-19] MEDS: OXYCODONE/ACETAMINOPHEN 5-325 1 EACH TABLET PEG PRN ×3 (02:22→19:32)
[2018-09-19 05:26] LABS: BASOPHILS % 0.3 % (0.0-1.0); EOSINOPHILS # (AUTO) 0.2 (0.0-0.4); EOSINOPHILS % 1.8 % (0.0-6.0); HEMOGLOBIN 10.1 g/dL (14.0-18.0); LYMPHOCYTES # (AUTO) 1.2 (1.0-3.2); LYMPHOCYTES % 9.7 % (18.0-39.1); MEAN CORPUSCULAR HEMOGLOBIN 29.6 pg (28-32); MEAN CORPUSCULAR HGB CONC 32.6 g/dL (31-35); MEAN CORPUSCULAR VOLUME 90.9 fL (81-99); MONOCYTES # (AUTO) 1.2 (0.2-0.8); MONOCYTES % 9.8 % (4.4-11.3); NEUTROPHILS # (AUTO) 9.3 (2.1-6.9); PLATELET COUNT 311 x10e3/uL (140-360); RED BLOOD COUNT 3.41 x10e6/uL (4.3-5.7); RED CELL DISTRIBUTION WIDTH 14.3 % (11.7-14.4)
[2018-09-19 05:44] LABS: ANION GAP 14.5 mmol/L (8-16); CREATININE, SERUM 1.72 mg/dL (0.72-1.25); POTASSIUM 3.5 mmol/L (3.5-5.1)
[2018-09-19] MEDS: [UNRECOGNIZED DRUG - OTHER] PEG SCH ×3 (06:00→17:06)
--- NOTE | 2018-09-19 06:16 | Diagnostic Imaging Report ---
EXAMINATION: CHEST SINGLE (PORTABLE) INDICATION: CHF. COMPARISON: Chest radiograph 09/18/2018. FINDINGS: TUBES and LINES: None. LUNGS: Moderate lung volumes. Stable multifocal consolidative opacities involving the right mid and bilateral lower lung zones. Mildly decreased perihilar and interstitial opacities. PLEURA: No evidence of pleural effusion or pneumothorax. HEART AND MEDIASTINUM: The cardiomediastinal silhouette is unremarkable. BONES AND SOFT TISSUES: No acute osseous abnormality. Status post median sternotomy. Lower cervical spine fixation hardware. UPPER ABDOMEN: No free air under the diaphragm. IMPRESSION: Stable multifocal consolidative and interstitial opacities which could represent multifocal pneumonia or pulmonary edema in the appropriate clinical context. Signed by: DR. Kahlil Mohan MD on 09/19/2018 6:13 AM
[2018-09-19] MEDS: LEVOTHYROXINE SODIUM 50 MCG TAB PO SCH (06:17)
[2018-09-19] MEDS: CARBIDOPA/LEVODOPA 25/100 TAB PO SCH ×4 (06:17→23:24)
[2018-09-19] MEDS: PANTOPRAZOLE SOD 40 MG TABEC PO SCH (07:24)
--- NOTE | 2018-09-19 07:26 | NUR ---
pt sleeping in bed, no s/s distress or c/o pain. will continue to monitor.
[2018-09-19] MEDS: AMLODIPINE BESYLATE 10 MG TAB PO SCH (09:00)
[2018-09-19] MEDS: CHLORTHALIDONE 25 MG TAB PEG SCH (09:00)
[2018-09-19] MEDS: LABETALOL HCL 200 MG TAB PEG SCH ×2 (09:00→23:23)
[2018-09-19] MEDS: FUROSEMIDE INJ 10 MG/ML 4 ML VIAL IV SCH (09:56)
[2018-09-19] MEDS: BRIMONIDINE/TIMOLOL (OPTH SOLN 5 ML DRPETTE OP SCH ×2 (09:56→17:06)
[2018-09-19] MEDS: DOCUSATE SODIUM 100 MG CAP PEG SCH (09:56)
[2018-09-19] MEDS: FERROUS SULFATE 325 MG TAB PEG SCH ×2 (09:57→17:06)
[2018-09-19] MEDS: RIVASTIGMINE TARTRATE 1.5 MG CAP PEG SCH ×2 (09:57→21:26)
[2018-09-19] MEDS: MULTIVITAMINS/MINERALS TAB PEG SCH (09:58)
[2018-09-19] MEDS: BACLOFEN 10 MG TAB PEG SCH ×2 (09:58→21:26)
[2018-09-19] MEDS: CALCIUM CARBONATE 500 MG CHEWABLE TABS PEG SCH (10:00)
[2018-09-19] MEDS: DONEPEZIL HCL 5 MG TAB PO SCH (10:00)
[2018-09-19] MEDS: LORAZEPAM INJ 2 MG/ML VIAL IV PRN ×2 (10:37→23:24)
--- NOTE | 2018-09-19 10:57 | NUR ---
pt htn meds held dt low bp. pt agitated, grabbing at items and attempting to climb out of bed. pt family at bedside. will continue to monitor.
--- NOTE | 2018-09-19 12:25 | NUR ---
EDUCATED ABOUT IMM, SIGNED, FILED IN CHART, WITH COPY LEFT WITH FAMILY AT BEDSIDE.
--- NOTE | 2018-09-19 14:24 | NUR ---
PER DR REED WHEN ROUNDING, OK TO DC DAILY HH LABS. PT NOTED TO HAVE GREEN DISCHARGE AT [facility] WITH FC, DR ALVARADO NOTIFIED. ORDERS TO CONT. TO MONITOR.
--- NOTE | 2018-09-19 14:31 | Progress Note ---
DATE: September 19, 2018 SUBJECTIVE: Patient is tolerating G-tube feeding. Has had liquid bowel movement, which was noted to be dark brown. No abdominal pain. REVIEW OF SYSTEMS: Patient is quite incoherent, therefore complete review of systems unobtainable. However: GENERAL: No fever or chills reported. CV: No chest pain or palpitation. RESPIRATORY: No cough or expectoration. MEDICATIONS: Reviewed as per OCT. PHYSICAL EXAMINATION VITAL SIGNS: Temperature 97.4, pulse 59, respirations 19, blood pressure 100/52 to 99/47, oxygen saturation 93% on room air. GENERAL: Not in any acute distress. HEENT: Oral mucosa is moist. Anicteric sclerae. ABDOMEN: Soft, nondistended and nontender. No palpable mass or hernia. G-tube site is clean. No discharge or any bleeding. LABS: WBC 12.1, hemoglobin 10.1, hematocrit 31, 0, MCV 90.9, and platelet count 311,000. Sodium 134, potassium 3.5, chloride 89, bicarb 34, BUN, 43, creatinine 1.72 up from 1.44. Chest x-ray showed a stable multifocal consolidative and interstitial opacities, which could represent multifocal pneumonia or pulmonary edema in appropriate clinical context. IMPRESSION: Lower gastrointestinal bleeding. This has ceased. Hemoglobin remains stable. Stool is dark color, which is expected due to use of iron. PLAN: Continue G-tube feeding. No need to monitor hemoglobin. No need for any colonoscopy. Rest of the care as per primary team. Discussed with the patient's at bedside. Discussed with the patient's nurse. Job#: [id number] SHERRY
--- NOTE | 2018-09-19 15:20 | NUR ---
WOUND CARE - PUP SCREEN Documented area of interest to Right Upper Back of unknown etiology. -Bernabe Score 11 -Alternating Pressure Air Mattress -Strict PUP Active. Skin Check Performed - Abdominal Binder in Place- Wide - Reddened areas at armpits. - PEG+ - Bilateral Heels - Dry/ Scaly - No Pressure Ulcers Identified. - Diapered - Sacral - No Pressure Ulcers Identified - Right Upper Back - Healing/ Absorbed- Multiple Blisters (0.3x0.3cm )in clusters over area of 5x5 cm. - Non raised, Non Reddened, Not Tender, Appears stable and resolving. RECOMMENDATION: - Continue Strict PUP - Continue Alternating Pressure Air Mattress - Continue Allevyn Foam Sacrum Dressing Daily - Bilateral Heels - Allevyn Foam Sacrum Daily (goal: reduce shear friction ) - Bilateral Heel Protectors/ Offload Heels with Pillows. - Continue Turning and repositioning every 2 hours - Obtain a less wide abdominal binder if available. Adjust q2h as needed ( keep away from armpits). Addendum: 09/19/18 at 1534 by Prashant Guerrero RN Amended: Links added. Addendum: 09/19/18 at 1604 by Prashant Guerrero RN RE: ALISA AT BACK OF HEAD> - Alisa X3 to Back of Head / Scalp at Parietal/ Occipital region. - Per Spouse have been there >30 days. Followed up for all alisa to be removed at F/U appt and 3 were missed. She discovered alisa once she was back home. - Skin intact. Very well approximated. Staple sites non reddened, no swelling, no edema. Stable. Do not appear to be holding anything anymore. Not over a visible incision line. Recommendation: - Area intact. Skin well approximated. Safe to remove alisa before area becomes infected. Procedure: Order obtained for okay to remove old alisa - [place] removed to Back of Head. Tolerated well, no bleeding noted. Skin intact. No steri strips required.
--- NOTE | 2018-09-19 19:37 | NUR ---
THIS PATIENT IS VERY CONFUSED, HE'S NOT ABLE TO VERBALLY EXPRESS HIMSELF. HE'S CONSTANTLY MOANING, TAKING OFF HIS OXYGEN NASAL CANNULA AND ATTEMPTING TO GET OUT OF BED. HIS OXYGEN SATURATION ON NASAL CANNULA AT 5L IS 97%, WHEN HE REMOVES HIS NASAL CANNULA THE SATURATION DECREASE TO 86% ON ROOM AIR. PRIMARY NURSE IN THE ROOM WITH THE PATIENT TO MAKE SURE THAT HIS OXYGEN IS ON AT ALL TIMES. MEDICATED WITH PERCOCET 1TAB FOR GENERALIZED PAIN, REPOSITION IN BED FOR COMFORT. HEAD OF BED ELEVATED, TUBE FEEDING INFUSING ORDERED.
--- NOTE | 2018-09-19 20:08 | Progress Note ---
DATE: September 19, 2018 PULMONARY MEDICINE PROGRESS NOTE SUBJECTIVE: Mr. Cristobal was seen and examined at bedside. He continues with slow progress. 5 liters per minute by nasal cannula. Simpson with urine output in place. Feeds at 60 mL per hour. Water at 200 mL every 6 hours. REVIEW OF SYSTEMS: No ability to get reliably as he is altered. OBJECTIVE: VITAL SIGNS: Afebrile, vital signs noted per electronic record. GENERAL: In no acute distress, alert and calm. HEENT: Normocephalic, atraumatic. NECK: Supple. Throat midline. LUNGS: Bilateral air entry, few scant rales. CARDIOVASCULAR: S1, S2. No murmurs, rubs, or gallops. ABDOMEN: Soft, nontender. EXTREMITIES: No clubbing, no cyanosis, there is trace edema. INTEGUMENT: No rash, no purpura. LABS: 3.5 potassium, 1.7 creatinine. 12 white count, 31 hematocrit, 311,000 platelets. IMPRESSION AND PLAN: 1. Lower gastrointestinal bleed, stopped. 2. Known 20 mm rectal ulcer. 3. Abnormal chest radiography, aspiration most likely. Less likely fluid overload. 4. Parkinson's dementia. 5. Weakness/debility. Continue to give this patient time to get better. Will wait another day to ensure appropriate risk of bleeding is improved. Will discuss with GI. Patient is at significant rebleeding risk and this is known. I discussed this also in the setting of the in the room. Continue GI medicines including IV proton pump inhibitor. Diuretics as needed. Followup closely. Job#: [id number]
--- NOTE | 2018-09-19 20:23 | NUR ---
CALL AND SPOKE WITH DR ALVARADO REGARDING THE PATIENT'S CONDITION, NEW ORDER RECEIVED.
[2018-09-19] MEDS ORDERED: HALOPERIDOL 5 MG TAB GT PRN (20:30)
[2018-09-19] MEDS: INSULIN GLARGINE 100 UNITS/ML VIAL SQ SCH (21:20)
[2018-09-19] MEDS: LATANOPROST(OPTH) 2.5 ML BTL OU SCH (21:26)
[2018-09-19] MEDS: DOCUSATE SODIUM LIQD 100 MG/10 ML UDC PEG SCH (21:26)
--- NOTE | 2018-09-19 21:26 | NUR ---
PATIENT IS SOUNDLY ASLEEP, NO RESPIRATORY DISTRESS OBSERVED. BLOOD PRESSURE 93/50, HEART RATE 66. WILL HOLD SCHEDULE LABETALOL FOR NOW DUE TO THE LOW BLOOD PRESSURE.
--- NOTE | 2018-09-19 23:24 | NUR ---
PATIENT IS RESTLESS, TAKING OFF HIS OXYGEN AND PUTTING HIS LEGS OVER THE SIDE RAILS. HE'S INCONTINENT OF STOOL, WITH ASSISTANCE HE'S KEPT CLEAN AND DRY, REPOSITION WITH HEAD OF BED ELEVATED. MEDICATED WITH ATIVAN ORDERED, WILL CONTINUE TO CLOSELY MONITOR.
[2018-09-20] VITALS (7 sets, daily range): BP systolic 73–138; BP diastolic 46–83
--- NOTE | 2018-09-20 02:47 | NUR ---
PATIENT INCONTINENT OF STOOL, KEPT CLEAN AND DRY. REPOSITION ON HIS RIGHT SIDE, HEAD OF BED ELEVATED AND PATIENT TOLERATING TUBE FEEDING WITHOUT VOMITING. BED ALARM KEPT ON AT ALL TIMES.
[2018-09-20] MEDS: HALOPERIDOL LACTATE 5 MG/ML VIAL IV PRN ×2 (04:50→10:47)
--- NOTE | 2018-09-20 04:55 | NUR ---
PATIENT KEPT CLEAN OF STOOL, HE'S RESTLESS AND TRYING TO GET OUT OF BED, TAKING OFF HIS TELEMETRY AND NASAL CANNULA. REPOSITION FOR COMFORT, MEDICATED WITH HALDOL ORDERED. BED ALAR ON, WILL CLOSELY MONITOR.
[2018-09-20] MEDS: LEVOTHYROXINE SODIUM 50 MCG TAB PO SCH (05:37)
[2018-09-20] MEDS: CARBIDOPA/LEVODOPA 25/100 TAB PO SCH ×3 (05:37→17:30)
[2018-09-20] MEDS: OXYCODONE/ACETAMINOPHEN 5-325 1 EACH TABLET PEG PRN ×3 (05:38→19:22)
--- NOTE | 2018-09-20 05:39 | NUR ---
PATIENT IS STILL RESTLESS, TAKING OFF HIS NASAL CANNULA AND THROWING THE PILLOWS ON THE FLOOR. MEDICATED WITH PERCOCET FOR GENERALIZED PAIN, PRIMARY NURSE RUB THE PATIENT'S HAND TO CONSOLE HIM BUT THAT DIDN'T WORK. BED ALARM REMAINS ON.
[2018-09-20] MEDS: [UNRECOGNIZED DRUG - OTHER] PEG SCH ×4 (06:00→16:59)
[2018-09-20 07:11] LABS: HEMOGLOBIN 10.5 g/dL (14.0-18.0); MEAN CORPUSCULAR HEMOGLOBIN 29.7 pg (28-32); MEAN CORPUSCULAR HGB CONC 31.8 g/dL (31-35); MEAN CORPUSCULAR VOLUME 93.5 fL (81-99); PLATELET COUNT 316 x10e3/uL (140-360); RED BLOOD COUNT 3.53 x10e6/uL (4.3-5.7); RED CELL DISTRIBUTION WIDTH 13.9 % (11.7-14.4)
[2018-09-20] MEDS: PANTOPRAZOLE SOD 40 MG TABEC PO SCH (07:28)
[2018-09-20 07:30] LABS: ANION GAP 15.1 mmol/L (8-16); CALCIUM 9.3 mg/dL (8.4-10.2); CREATININE, SERUM 1.43 mg/dL (0.72-1.25); POTASSIUM 4.1 mmol/L (3.5-5.1)
--- NOTE | 2018-09-20 08:50 | NUR ---
pt resting in bed, family at bedside. vs stable, no c/o pain or s/s distress. will continue to monitor.
[2018-09-20] MEDS: FUROSEMIDE INJ 10 MG/ML 4 ML VIAL IV SCH (09:42)
[2018-09-20] MEDS: MULTIVITAMINS/MINERALS TAB PEG SCH (09:42)
[2018-09-20] MEDS: BACLOFEN 10 MG TAB PEG SCH ×2 (09:42→21:30)
[2018-09-20] MEDS: BRIMONIDINE/TIMOLOL (OPTH SOLN 5 ML DRPETTE OP SCH ×2 (09:42→17:30)
[2018-09-20] MEDS: FERROUS SULFATE 325 MG TAB PEG SCH ×2 (09:42→17:30)
[2018-09-20] MEDS: RIVASTIGMINE TARTRATE 1.5 MG CAP PEG SCH ×2 (09:42→21:30)
[2018-09-20] MEDS: CHLORTHALIDONE 25 MG TAB PEG SCH (09:42)
[2018-09-20] MEDS: DOCUSATE SODIUM LIQD 100 MG/10 ML UDC PEG SCH ×2 (09:42→21:00)
[2018-09-20] MEDS: CALCIUM CARBONATE 500 MG CHEWABLE TABS PEG SCH (09:43)
[2018-09-20] MEDS: DONEPEZIL HCL 5 MG TAB PO SCH (09:43)
[2018-09-20] MEDS: AMLODIPINE BESYLATE 10 MG TAB PO SCH (09:43)
[2018-09-20] MEDS: LABETALOL HCL 200 MG TAB PEG SCH ×2 (09:43→21:33)
[2018-09-20 10:46] LABS: BAND NEUTROPHILS % (MANUAL) 4 %; EOSINOPHILS % (MANUAL) 1 % (0-7); LYMPHOCYTES % (MANUAL) 7 % (19-48); METAMYELOCYTES % (MANUAL) 2 % (0-0); MONOCYTES % (MANUAL) 9 % (3.4-9.0); NEUTROPHILS % (MANUAL) 76 % (40-74); PLATELET ESTIMATE ADEQUATE; PLATELET MORPHOLOGY COMMENT NORMAL; RBC MORPHOLOGY COMMENT NORMAL
[2018-09-20] MEDS ORDERED: CEFEPIME HCL 1 GM VIAL IV SCH (13:15)
--- NOTE | 2018-09-20 13:44 | Consultation ---
DATE OF CONSULTATION: REASON FOR CONSULTATION: UTI. HISTORY OF PRESENT ILLNESS: Mr. Cristobal is an 83-year-old gentleman who has history of hypertension, diabetes mellitus, Parkinson disease, benign prostate hypertrophy, coronary artery disease, subdural hematoma and chronic kidney disease. The patient comes in with what seems to be a GI bleed. The patient was recently in the hospital for a head injury and bleeding. The patient has severe Parkinson's with constipation. He comes here with lower GI bleed. Colonoscopy was done. He had a rectal ulcer. It was cauterized but after that he presented with another bleed. The patient was sent to the emergency room. It was also noted that there was some pus coming around his Simpson catheter. Infectious disease was asked to see the patient. Patient does not provide any complaints or meaningful information at the present time. It was also noted that he was hypoxemic. While he was on 40%, oxygenation was 89%. Infectious disease was asked to see the patient. Laboratory data: White count is 14.85, hemoglobin 10.5. Sodium 139, potassium 4.1, creatinine 1.43. The patient is currently on Haldol, Aricept, Tums, Colace, levothyroxine, and Zofran. ALLERGIES: CODEINE. REVIEW OF SYSTEMS HEENT: Negative. PULMONARY: Some shortness of breath and a weak cough noted. PHYSICAL EXAMINATION GENERAL: He is alert, does not seem to be in acute distress. VITALS: Stable. Currently afebrile. HEENT: Not icteric. NECK: Supple. CHEST: A few crackles bilaterally. HEART: S1, S2. No S3, S4 or murmur. ABDOMEN: Soft. IMPRESSION 1. Pneumonia, aspiration, in a patient with severe Parkinson disease. Will put him on cefepime and vancomycin. Will adjust for his kidney function. 2. Urinary tract infection with pus around the Smipson. Will obtain urine cultures and culture of the pus. 3. Parkinson disease. 4. Gastrointestinal bleed seems to be arrested. 5. Will follow. Job#: [id number]
--- NOTE | 2018-09-20 14:03 | Progress Note ---
DATE: September 20, 2018 PULMONARY MEDICINE PROGRESS NOTE SUBJECTIVE: Mr. Cristobal was seen and examined at bedside. He continues to have steady progress. Patient without any clinical bleed. I spoke to GI specialist today, and the patient is reasonable to send back to long-term acute care facility. Patient today placed both legs over the bedrail, and is starting to get more physically able again. Patient with some purulence coming from the Simpson. REVIEW OF SYSTEMS: No headaches. No bleeding. OBJECTIVE VITALS: Afebrile. Vital signs noted per electronic record. GENERAL: No acute distress. Alert and calm. HEENT: Normocephalic and atraumatic. NECK: Supple. Throat midline. LUNGS: Bilateral air entry. Few rhonchi. CARDIOVASCULAR: S1 and S2. No murmurs, rubs or gallops. ABDOMEN: Soft and nontender. EXTREMITIES: No clubbing. No cyanosis. There is trace 1+ edema. INTEGUMENT: No rash. No purpura. LABS: Potassium 4.1, BUN 45, creatinine 1.4. White count 16, hematocrit 33, and 316,000 platelets. IMPRESSION AND PLAN 1. Leukocytosis. 2. Abnormal chest radiography, aspiration versus overload. 3. Parkinson. 4. Status post subdural hemorrhage and status post operative drainage. At this time, recommend to continue followup for bleeding. Get an LTAC consult. Continue neurologic exam and will recommend transfer to LTAC facility so the patient can get rehabilitation to regain his walking. Patient has shown steady progress. Will follow along closely. Job#: [id number] SHERRY
[2018-09-20] MEDS: VANCOMYCIN 1GM/NS 250 ML 250 ML IV SCH (14:18)
[2018-09-20] MEDS: CEFEPIME 1GM/NS 0.9% 50 ML 50 ML IV SCH (14:18)
--- NOTE | 2018-09-20 16:28 | NUR ---
RECEIVED ORDER FOR LTAC. CALL MADE TO PT'S FOR CHOICE TO RETURN TO [facility]. NO ANSWER; LEFT VM. WILL F/U IN AM.
--- NOTE | 2018-09-20 19:22 | NUR ---
PATIENT MOANING AND TAKING OFF HIS GOWN AND THE TELEMETRY. HE'S CLEAN AND DRY, MEDICATED WITH PERCOCET 1TAB FOR GENERALIZED PAIN. HEAD OF BED ELEVATED, BED ALARM ON.
[2018-09-20] MEDS ORDERED: CEFEPIME 1GM/NS 0.9% 50 ML 50 ML IV SCH (21:00)
[2018-09-20] MEDS: LATANOPROST(OPTH) 2.5 ML BTL OU SCH (21:30)
[2018-09-20] MEDS: INSULIN GLARGINE 100 UNITS/ML VIAL SQ SCH (21:33)
--- NOTE | 2018-09-20 21:34 | NUR ---
PATIENT INCONTINENT OF LOOSE BLACK STOOL, KEPT CLEAN AND DRY. REPOSITION ON HIS RIGHT SIDE, HEAD OF BED ELEVATED, BED ALARM ON.
[2018-09-21] VITALS (9 sets, daily range): BP systolic 86–130; BP diastolic 48–61
[2018-09-21] MEDS: CARBIDOPA/LEVODOPA 25/100 TAB PO SCH ×4 (00:37→18:32)
[2018-09-21] MEDS: OXYCODONE/ACETAMINOPHEN 5-325 1 EACH TABLET PEG PRN (02:15)
[2018-09-21] MEDS: CEFEPIME 1GM/NS 0.9% 50 ML 50 ML IV SCH ×2 (02:15→14:00)
--- NOTE | 2018-09-21 02:33 | NUR ---
PATIENT KEPT CLEAN OF STOOL, HE'S REPOSITION FOR COMFORT. MEDICATED WITH PERCOCET 1 TAB PER PEG TUBE ORDERED. BED ALARM ON AT ALL TIMES, HEAD OF BED ELEVATED.
--- NOTE | 2018-09-21 03:17 | NUR ---
PATIENT TRANSFERRED TO #[id number], REPORT CALL AND GIVEN TO THE RECEIVING NURSE.
--- NOTE | 2018-09-21 03:54 | NUR ---
PATIENT IS TRANSFERRED FROM [facility] PT IS SOUNDLY ASLEEP, NO RESPIRATORY DISTRESS NOTED .PT HAS PEG TUBE GLUCERNA AT 60CC/HR RUNNING SACRUM RED PT HAS F/C AND RT UPPER MID LINE .PT IS DNR .CALL LIGHT WITH IN REACH .CONTINUE TO MONITOR
[2018-09-21 05:31] LABS: HEMATOCRIT 30.6 % (38.2-49.6); HEMOGLOBIN 10.3 g/dL (14.0-18.0); MEAN CORPUSCULAR HEMOGLOBIN 30.5 pg (28-32); MEAN CORPUSCULAR HGB CONC 33.7 g/dL (31-35); MEAN CORPUSCULAR VOLUME 90.5 fL (81-99); PLATELET COUNT 330 x10e3/uL (140-360); RED BLOOD COUNT 3.38 x10e6/uL (4.3-5.7); RED CELL DISTRIBUTION WIDTH 13.7 % (11.7-14.4)
[2018-09-21 05:49] LABS: ANION GAP 17.1 mmol/L (8-16); CALCIUM 8.9 mg/dL (8.4-10.2); CREATININE, SERUM 1.54 mg/dL (0.72-1.25); POTASSIUM 4.1 mmol/L (3.5-5.1)
[2018-09-21] MEDS: [UNRECOGNIZED DRUG - OTHER] PEG SCH ×4 (06:00→17:59)
[2018-09-21] MEDS: LEVOTHYROXINE SODIUM 50 MCG TAB PO SCH (06:00)
--- NOTE | 2018-09-21 07:00 | NUR ---
PT RESTING ..DENIES LELE GLUCERNA 1.5 AT 60CC/HR IS RUNNING .F/C INTACT CALL LIGHT WITH IN REACH .CONTINUE TO MONITOR
[2018-09-21 07:03] LABS: LYMPHOCYTES % (MANUAL) 8 % (19-48); MONOCYTES % (MANUAL) 7 % (3.4-9.0); NEUTROPHILS % (MANUAL) 85 % (40-74); PLATELET ESTIMATE ADEQUATE; PLATELET MORPHOLOGY COMMENT NORMAL; RBC MORPHOLOGY COMMENT NORMAL
[2018-09-21] MEDS: BRIMONIDINE/TIMOLOL (OPTH SOLN 5 ML DRPETTE OP SCH ×2 (09:00→18:32)
[2018-09-21] MEDS: DOCUSATE SODIUM LIQD 100 MG/10 ML UDC PEG SCH ×2 (09:00→21:00)
[2018-09-21] MEDS: LABETALOL HCL 200 MG TAB PEG SCH ×2 (09:00→21:00)
[2018-09-21] MEDS: FERROUS SULFATE 325 MG TAB PEG SCH ×2 (09:00→18:32)
[2018-09-21] MEDS: CHLORTHALIDONE 25 MG TAB PEG SCH (09:00)
[2018-09-21] MEDS: CALCIUM CARBONATE 500 MG CHEWABLE TABS PEG SCH (09:00)
[2018-09-21] MEDS: RIVASTIGMINE TARTRATE 1.5 MG CAP PEG SCH ×2 (09:00→21:00)
[2018-09-21] MEDS: FUROSEMIDE INJ 10 MG/ML 4 ML VIAL IV SCH (09:00)
[2018-09-21] MEDS: AMLODIPINE BESYLATE 10 MG TAB PO SCH (09:00)
[2018-09-21] MEDS: MULTIVITAMINS/MINERALS TAB PEG SCH (09:00)
[2018-09-21] MEDS: DONEPEZIL HCL 5 MG TAB PO SCH (09:00)
[2018-09-21] MEDS: BACLOFEN 10 MG TAB PEG SCH ×2 (09:00→21:00)
[2018-09-21] MEDS ORDERED: SODIUM CHLORIDE 0.9% 500ML 500 ML ONE (12:40)
[2018-09-21] MEDS: VANCOMYCIN 1GM/NS 250 ML 250 ML IV SCH (13:07)
--- NOTE | 2018-09-21 13:20 | NUR ---
HOB elevated, continues on tube feed, residual 20cc and no aspirations noted, some congestions and no resp distress, will monitor.
--- NOTE | 2018-09-21 13:22 | NUR ---
Stoma care provided, no c/o pains, patient on Lasix and continue to reposition, will monitor.
[2018-09-21] MEDS: METRONIDAZOLE 500MG/NS 100ML 100 ML IV SCH ×2 (14:00→22:19)
--- NOTE | 2018-09-21 14:21 | Progress Note ---
DATE: September 21, 2018 PULMONARY MEDICINE PROGRESS NOTE SUBJECTIVE: Mr. Cristobal was seen and examined at bedside. He continues to have slow progress. He seems to have some crackling in the lungs and airway. oral secretions retained. aguero in place. REVIEW OF SYSTEMS: Not obtainable as the patient is not speaking. OBJECTIVE VITALS: Afebrile. Vital signs remain stable per record. HEENT: Normocephalic and atraumatic. NECK: Supple. Throat midline. LUNGS: Bilateral air entry. Rare rhonchi. few crackles CARDIOVASCULAR: S1 and S2. No murmurs, rubs or gallops. ABDOMEN: Soft and nontender. EXTREMITIES: No clubbing. No cyanosis. There is 1+ edema in the legs. INTEGUMENT: No rash. No purpura. Some mild stasis changes to the legs. LABS: per chart IMPRESSION AND PLAN 1. low gi bleed 2. 20 mm rectal ulcer. 3. suspected aspiration 4. urinary retention 5. possible urinary tract infection 6. debility/weakness 7. parkinsons DO 8. recent subdural hemorrhage, s/p evacuation Continue current treatment. Antibiotics per ID. serial exams, r/o bleeding maintain aguero follow along closely ready for LTAC, d/w GI physician Job#: [id number] ALEXIS CHACON
--- NOTE | 2018-09-21 15:43 | NUR ---
CM SPOKE TO PATIENT AND PATIENT AT BEDSIDE REGARDING IMM LETTER. IMM LETTER GIVEN WITH EXPLANATION. ORIGINAL SIGNED BY AND PLACED IN CHART. PATIENT; COPY OF ORIGINAL DOCUMENT GIVEN TO PATIENT AT BEDSIDE AND PLACED IN CARE TRANSITION FOLDER. CM CONTACT INFORMATION GIVEN TO PATIENT FOR ANY NEEDS OR CONCERNS. PATIENT WITH NO FURTHER QUESTIONS.
--- NOTE | 2018-09-21 16:17 | Diagnostic Imaging Report ---
Examination: Single AP view of the chest. COMPARISON: September 19, 2018 INDICATION: Aspiration DISCUSSION: Lines/tubes: None. Lungs: Increased multifocal consolidation in the right upper and midlung. Pleura: No pleural effusion or pneumothorax. Heart and mediastinum: The heart and the mediastinum are unremarkable. Bones and soft tissues: No acute bony abnormalities. IMPRESSION: 1. Increased multifocal consolidation/aspiration in the right upper and midlung. Signed by: Dr. Olaf Reyes M.D. on 09/21/2018 4:14 PM
--- NOTE | 2018-09-21 17:04 | NUR ---
Nutrition Intervention Note (Follow up) RD Recommendation(s) for Physician: -Continue current TF order of Glucerna 1.5 @60mL/hr (2160kcal, 119g protein and 1100mL water) - meeting 100% of est calorie and protein needs -Water flushes per MD discretion -Check daily labs, weight, and GI tolerance Plan of Care: RD following, monitoring for tolerance and adequacy, TF rec Nutrition reason for involvement: Follow up RD Assessment 09/21 Chart reviewed. Pt was discussed during AM rounds. Per DOYLE Butler, TF has been well tolerated with 0 residual. WBC elevated, on abx. LTAC pending. Visited pt in the room; TF running at goal rate. Will continue to monitor and follow. Consult as needed. 09/18 - Chart reviewed. Labs and meds reviewed. Pt was discussed during AM rounds. GI bleed has improved. Pt was started on Glucerna 1.5 @60mL/hr (2160kcal, 119g protein and 1100mL water) and free water flushes of 200mL q 6hr via PEG. Visited pt and spoke with his yesterday. didnt mention anything about pt having a PEG placement STRIP WINDER. Current TF order is appropriate. Will continue to monitor and follow. Consult as needed. Principal Problems/Diagnoses: GI bleed PMH: hypertension, diabetes, Parkinson's, BPH, coronary artery disease, subdural hematoma. GI: Abdomen soft, liquid/black stool x2 09/21 (on colace and feosol) Skin: no wound pressure noted Labs: (09/21) Na 135 L, BUN 51 H, Creatinine 1.54 H, Glucose 266 H (09/18) BUN 34 H, Creatinine 1.44 H, Glucose 143 H Meds: abx, colace, diuretics, MVi w mineral, feosol, tums, synthroid Ht: 69in Wt: 190lb BMI: 28.1kg/m2 IBW: 160lb Malnutrition Evaluation (09/17/18) The patient does not meet criteria for a specified degree of malnutrition at this time. Will re-evaluate at follow-up as appropriate. Nutrition Prescription (Diet Order): Glucerna 1.5 @60mL/hr Estimated Nutritional Needs: Calories: 1720 2150kcal (20-25kcal/kg/d) Weight used: Current BW Protein: 86 129g (1-1.5g/kg/d) Weight used: Current BW Diet Adequacy: Meeting calorie needs, Meeting protein needs Diet Education Needs Assessment: Diet education indicated, but patient not appropriate for education at this time. Nutrition Care Level: low (stable TF) Nutrition Diagnosis: Difficulty swallowing related to chronic illness as evidenced by pt requiring EN as main source of nutrition. Goal: Patient will meet 75-100% of estimated needs by follow up Progress: Goal met Interventions: Composition, Rate, Route, IVF Monitoring/Evaluation: Total energy intake, Total protein intake, Formula/Solution, IVF, Weight change, labs, I & O Signed: Amparo Gilbert MS, RD, LD
--- NOTE | 2018-09-21 18:28 | NUR ---
Patient alert and responsive, incontinence care provided and skin protection precautions in place, repositioning per protocol, tolerating tube feed with 200cc flush [id number], HOB elevated at 45 degrees, will monitor.
--- NOTE | 2018-09-21 19:05 | NUR ---
Completed BS rounds with morning nurse. Pt lying in bed with eye closed. Resp even and unlabored. Lying in bed 45 degrees. O2 @2L via NC, no SOB noted. PEG tube in place, Glucerna 1.5 @60ml/hr. No s/s of pain. Call andrade within reach. Bed low and locked. Will continue to monitor.
[2018-09-21] MEDS: IPRATROPIUM BROMIDE 0.02% 2.5 ML NEB NEB SCH ×2 (19:18→23:05)
[2018-09-21] MEDS: LATANOPROST(OPTH) 2.5 ML BTL OU SCH (21:00)
[2018-09-21] MEDS: INSULIN GLARGINE 100 UNITS/ML VIAL SQ SCH (21:00)
[2018-09-22] VITALS (8 sets, daily range): BP systolic 107–119; BP diastolic 52–61
[2018-09-22] MEDS: CARBIDOPA/LEVODOPA 25/100 TAB PO SCH ×4 (01:00→17:28)
[2018-09-22] MEDS: CEFEPIME 1GM/NS 0.9% 50 ML 50 ML IV SCH ×2 (01:27→14:24)
[2018-09-22] MEDS: IPRATROPIUM BROMIDE 0.02% 2.5 ML NEB NEB SCH ×6 (02:55→23:15)
[2018-09-22 05:41] LABS: HEMATOCRIT 31.1 % (38.2-49.6); HEMOGLOBIN 10.3 g/dL (14.0-18.0); MEAN CORPUSCULAR HEMOGLOBIN 29.7 pg (28-32); MEAN CORPUSCULAR HGB CONC 33.1 g/dL (31-35); MEAN CORPUSCULAR VOLUME 89.6 fL (81-99); PLATELET COUNT 330 x10e3/uL (140-360); RED BLOOD COUNT 3.47 x10e6/uL (4.3-5.7); RED CELL DISTRIBUTION WIDTH 13.5 % (11.7-14.4)
[2018-09-22] MEDS: [UNRECOGNIZED DRUG - OTHER] PEG SCH ×4 (06:00→17:27)
[2018-09-22 06:11] LABS: CREATININE, SERUM 1.53 mg/dL (0.72-1.25)
[2018-09-22] MEDS: LEVOTHYROXINE SODIUM 50 MCG TAB PO SCH (06:18)
[2018-09-22] MEDS: METRONIDAZOLE 500MG/NS 100ML 100 ML IV SCH ×3 (06:18→21:37)
--- NOTE | 2018-09-22 09:30 | NUR ---
In to assist the PCT with positioning and found that the pt. had expelled a large dark red stool and has oozing bright red blood from the rectum. The pt. was cleaned up and repositioned in the bed. The will notified.
[2018-09-22] MEDS: DOCUSATE SODIUM LIQD 100 MG/10 ML UDC PEG SCH ×2 (09:46→21:33)
[2018-09-22] MEDS: RIVASTIGMINE TARTRATE 1.5 MG CAP PEG SCH ×2 (09:46→21:33)
[2018-09-22] MEDS: FUROSEMIDE INJ 10 MG/ML 4 ML VIAL IV SCH (09:46)
[2018-09-22] MEDS: BACLOFEN 10 MG TAB PEG SCH ×2 (09:46→21:33)
[2018-09-22] MEDS: CHLORTHALIDONE 25 MG TAB PEG SCH (09:46)
[2018-09-22] MEDS: FERROUS SULFATE 325 MG TAB PEG SCH ×2 (09:46→17:28)
[2018-09-22] MEDS: BRIMONIDINE/TIMOLOL (OPTH SOLN 5 ML DRPETTE OP SCH ×2 (09:46→17:27)
[2018-09-22] MEDS: DONEPEZIL HCL 5 MG TAB PO SCH (09:47)
[2018-09-22] MEDS: LABETALOL HCL 200 MG TAB PEG SCH ×2 (09:47→21:34)
[2018-09-22] MEDS: CALCIUM CARBONATE 500 MG CHEWABLE TABS PEG SCH (09:47)
[2018-09-22] MEDS: MULTIVITAMINS/MINERALS TAB PEG SCH (09:47)
[2018-09-22] MEDS: AMLODIPINE BESYLATE 10 MG TAB PO SCH (09:48)
[2018-09-22] MEDS: PANTOPRAZOLE 40 MG 10ML VIAL IV SCH (09:48)
--- NOTE | 2018-09-22 10:30 | NUR ---
Dr. Khan notified of the pt's rectal discharge.
[2018-09-22] MEDS: VANCOMYCIN 1GM/NS 250 ML 250 ML IV SCH (12:25)
--- NOTE | 2018-09-22 19:10 | NUR ---
Completed BS rounds with morning nurse. Pt lying in bed with eye closed. Resp even and unlabored. Lying in bed 60 degrees. O2 @3L via NC, no SOB noted. PEG tube in place, Glucerna 1.5 @60ml/hr. No s/s of pain. Call andrade within reach. Bed low and locked. Will continue to monitor.
[2018-09-22] MEDS ORDERED: DEXTROSE 50% SYRINGE 50 ML IV PRN (20:15)
[2018-09-22] MEDS: LATANOPROST(OPTH) 2.5 ML BTL OU SCH (21:33)
[2018-09-22] MEDS: INSULIN LISPRO 100 UNIT/1 ML 3ML VIAL SQ SCH (21:36)
[2018-09-22] MEDS: INSULIN GLARGINE 100 UNITS/ML VIAL SQ SCH (21:36)
--- NOTE | 2018-09-22 22:42 | Progress Note ---
DATE: September 22, 2018 PULMONARY MEDICINE PROGRESS NOTE SUBJECTIVE: Mr. Cristobal was seen and examined at bedside. He is on 3 liters per minute by nasal cannula oxygen. He is little more on the sedated side today. He has been sleeping most of the day. I discussed with the and she is happy with it, although I know there is risk of aspiration; 1.1 liters in recorded, 1.0 liters out recorded, 2 bowel movements; 60 mL per hour feeds, water is 200 mL q.6h. REVIEW OF SYSTEMS: Cannot get reliably as the patient is sleepy. OBJECTIVE VITAL SIGNS: Afebrile. Vital signs noted per electronic record. GENERALLY: In no acute distress, sleeping, not awakening, not talking right now. HEENT: Normocephalic and atraumatic. Throat is midline. NECK: Supple. LUNGS: Bilateral air entry, few rhonchi, slightly less than yesterday. CARDIOVASCULAR: S1 and S2. No murmurs, rubs or gallops. ABDOMEN: Soft and nontender. EXTREMITIES: No clubbing. No cyanosis. There is 1+ edema to legs. INTEGUMENT: No rash, no purpura. LABORATORY DATA: White count 14 , hematocrit 31, and platelets 330. Potassium 4.0, BUN 55, and creatinine 1.5. IMPRESSION 1. Aspiration pneumonitis. 2. Encephalopathy, multifactorial. 3. Parkinson's disease. 4. Recent subdural hemorrhage status post evacuation. 5. Recurrent gastrointestinal bleed, he had more today red blood. Follow up with GI regarding the bleed. We will decrease Ativan as we cannot risk the aspiration despite the feeling like being more sedated is better for the patient. We will control blood pressure still. Continue nutrition with high aspiration precautions. LTAC consult was made, but we will have to follow up on the bleeding and GI recommendations. Job#: [id number] DOLORES
[2018-09-23] VITALS (8 sets, daily range): BP systolic 119–140; BP diastolic 61–70
[2018-09-23] MEDS: INSULIN LISPRO 100 UNIT/1 ML 3ML VIAL SQ SCH ×4 (01:15→17:35)
[2018-09-23] MEDS: CEFEPIME 1GM/NS 0.9% 50 ML 50 ML IV SCH ×2 (01:43→14:17)
[2018-09-23] MEDS: IPRATROPIUM BROMIDE 0.02% 2.5 ML NEB NEB SCH ×6 (03:15→23:20)
[2018-09-23 05:33] LABS: BASOPHILS # (AUTO) 0.1 (0.0-0.1); BASOPHILS % 0.7 % (0.0-1.0); EOSINOPHILS # (AUTO) 0.2 (0.0-0.4); EOSINOPHILS % 1.4 % (0.0-6.0); HEMATOCRIT 29.7 % (38.2-49.6); LYMPHOCYTES # (AUTO) 1.5 (1.0-3.2); LYMPHOCYTES % 9.1 % (18.0-39.1); MEAN CORPUSCULAR HEMOGLOBIN 30.2 pg (28-32); MEAN CORPUSCULAR HGB CONC 33.7 g/dL (31-35); MEAN CORPUSCULAR VOLUME 89.7 fL (81-99); MONOCYTES # (AUTO) 1.1 (0.2-0.8); MONOCYTES % 6.4 % (4.4-11.3); NEUTROPHILS # (AUTO) 12.4 (2.1-6.9); NEUTROPHILS % 74.4 % (38.7-80.0); PLATELET COUNT 299 x10e3/uL (140-360); RED BLOOD COUNT 3.31 x10e6/uL (4.3-5.7); RED CELL DISTRIBUTION WIDTH 13.6 % (11.7-14.4)
[2018-09-23] MEDS: [UNRECOGNIZED DRUG - OTHER] PEG SCH ×5 (06:00→23:59)
[2018-09-23] MEDS: METRONIDAZOLE 500MG/NS 100ML 100 ML IV SCH ×3 (06:04→22:26)
[2018-09-23] MEDS: CARBIDOPA/LEVODOPA 25/100 TAB PO SCH ×5 (06:04→23:59)
[2018-09-23] MEDS: LEVOTHYROXINE SODIUM 50 MCG TAB PO SCH (06:04)
--- NOTE | 2018-09-23 06:18 | Diagnostic Imaging Report ---
EXAMINATION: CHEST SINGLE (PORTABLE) INDICATION: Pneumonia COMPARISON: Chest radiograph 09/21/2018. FINDINGS: TUBES and LINES: None. LUNGS: Stable multifocal consolidative opacities involving the right mid and bilateral lower lung zones. PLEURA: No evidence of pleural effusion or pneumothorax. HEART AND MEDIASTINUM: The cardiomediastinal silhouette is unremarkable. BONES AND SOFT TISSUES: No acute osseous abnormality. Status post median sternotomy. Lower cervical spine fixation hardware. UPPER ABDOMEN: No free air under the diaphragm. IMPRESSION: Stable multifocal consolidations concerning for pneumonia. Signed by: DR. Kahlil Mohan MD on 09/23/2018 6:15 AM
--- NOTE | 2018-09-23 07:24 | NUR ---
Received the pt.in bed with tube feeding in place and functional. All lines are intact and aguero patent and draining yellow urine. The pt is positioned in semi-fowlers and no evidence of distress.
[2018-09-23] MEDS: FUROSEMIDE INJ 10 MG/ML 4 ML VIAL IV SCH (09:12)
[2018-09-23] MEDS: BACLOFEN 10 MG TAB PEG SCH (09:12)
[2018-09-23] MEDS: CALCIUM CARBONATE 500 MG CHEWABLE TABS PEG SCH (09:12)
[2018-09-23] MEDS: RIVASTIGMINE TARTRATE 1.5 MG CAP PEG SCH ×2 (09:12→21:00)
[2018-09-23] MEDS: CHLORTHALIDONE 25 MG TAB PEG SCH (09:12)
[2018-09-23] MEDS: PANTOPRAZOLE 40 MG 10ML VIAL IV SCH (09:12)
[2018-09-23] MEDS: BRIMONIDINE/TIMOLOL (OPTH SOLN 5 ML DRPETTE OP SCH ×2 (09:12→17:15)
[2018-09-23] MEDS: LABETALOL HCL 200 MG TAB PEG SCH ×2 (09:12→21:00)
[2018-09-23] MEDS: DOCUSATE SODIUM LIQD 100 MG/10 ML UDC PEG SCH ×2 (09:12→21:00)
[2018-09-23] MEDS: FERROUS SULFATE 325 MG TAB PEG SCH ×2 (09:12→17:15)
[2018-09-23] MEDS: DONEPEZIL HCL 5 MG TAB PO SCH (09:12)
[2018-09-23] MEDS: MULTIVITAMINS/MINERALS TAB PEG SCH (09:12)
[2018-09-23] MEDS: AMLODIPINE BESYLATE 10 MG TAB PO SCH (09:13)
[2018-09-23 10:39] LABS: EOSINOPHILS % (MANUAL) 3 % (0-7); LYMPHOCYTES % (MANUAL) 13 % (19-48); MONOCYTES % (MANUAL) 13 % (3.4-9.0); NEUTROPHILS % (MANUAL) 71 % (40-74); PLATELET ESTIMATE ADEQUATE; PLATELET MORPHOLOGY COMMENT NORMAL; RBC MORPHOLOGY COMMENT NORMAL
[2018-09-23] MEDS: VANCOMYCIN 1GM/NS 250 ML 250 ML IV SCH (13:59)
[2018-09-23] MEDS ORDERED: OXYCODONE/ACETAMINOPHEN 5-325 1 EACH TABLET PEG PRN (14:00)
--- NOTE | 2018-09-23 18:11 | Progress Note ---
DATE: September 23, 2018 PULMONARY MEDICINE PROGRESS NOTE SUBJECTIVE: Mr. Cristobal was seen and examined at bedside. He continues to have slow progress. For over a day and half, he has not awoken. Three liters ran via nasal cannula. No visible worsening of aspiration. He intermittently is still coughing. Simpson in place with urine output. Feeds at 60 mL per hour. Water at 200 mL every 6 hours. REVIEW OF SYSTEMS: Could not get as he is not answering. OBJECTIVE VITAL SIGNS: Afebrile. Vital signs noted per electronic record. GENERAL: In no acute distress, alert and calm, sleep in bed. HEENT: Normocephalic, atraumatic. NECK: Supple. Throat midline. LUNGS: Bilateral air entry, rare rhonchi, most clear, but slightly limited with decreased effort. CARDIOVASCULAR: S1 and S2. No murmurs, rubs, or gallops. ABDOMEN: Soft, nontender. EXTREMITIES: No clubbing, no cyanosis. There is 1+ edema. INTEGUMENT: No rash. No purpura. LABS: Potassium 4.0, creatinine 1.5. White count 16, hematocrit 29, platelets 299. IMPRESSION AND PLAN 1. Abnormal chest radiography, aspiration. 2. Encephalopathy, medications plus or minus metabolic worsening with underlying chronic neurologic AMS. 3. Parkinson's disease. 4. Recent subdural hematoma, status post evacuation of subdural hematoma. 5. Recurrent lower gastrointestinal bleed, rectal ulcer. Continue serial followup of stools and bowel movements. GI to follow up on GI bleeding for which recurrence was yesterday. Patient to continue on tube feeds as feasible. Prevent constipation. Follow up urinary retention with Simpson in place. Continue current treatment. Job#: [id number] RTY
--- NOTE | 2018-09-23 19:05 | NUR ---
Completed rounds with morning nurse. Pt resting quietly in bed. HOB 60 degrees. Resp even and unlabored. O2 @3L via NC, no SOB noted. PEG tube in place, Glucerna 1.5 @60ml/hr. No s/s of pain. Call andrade within reach. Bed low and locked. Will continue to monitor.
[2018-09-23] MEDS: INSULIN GLARGINE 100 UNITS/ML VIAL SQ SCH (21:00)
[2018-09-23] MEDS: LATANOPROST(OPTH) 2.5 ML BTL OU SCH (21:00)
[2018-09-24] VITALS (9 sets, daily range): BP systolic 103–123; BP diastolic 55–67
[2018-09-24] MEDS: INSULIN LISPRO 100 UNIT/1 ML 3ML VIAL SQ SCH ×4 (00:50→17:48)
[2018-09-24] MEDS: CEFEPIME 1GM/NS 0.9% 50 ML 50 ML IV SCH (02:15)
--- NOTE | 2018-09-24 02:37 | NUR ---
Resting quietly with eyes closed. Lying supine HOB 60 degrees. Resp even and unlabored. No distress noted. Call andrade within reach.
[2018-09-24] MEDS: IPRATROPIUM BROMIDE 0.02% 2.5 ML NEB NEB SCH ×6 (02:55→23:38)
[2018-09-24] MEDS: [UNRECOGNIZED DRUG - OTHER] PEG SCH ×4 (06:00→22:35)
[2018-09-24] MEDS: CARBIDOPA/LEVODOPA 25/100 TAB PO SCH ×3 (06:40→17:46)
[2018-09-24] MEDS: LEVOTHYROXINE SODIUM 50 MCG TAB PO SCH (06:40)
[2018-09-24] MEDS: METRONIDAZOLE 500MG/NS 100ML 100 ML IV SCH ×3 (06:40→22:34)
--- NOTE | 2018-09-24 07:02 | NUR ---
RECEIVED PATIENT RESTING IN BED. NO ACUTE DISTRESS NOTED. CALL LIGHT WITHIN REACH. BED IN THE LOWEST POSITION. BED ALARM ON.
[2018-09-24] MEDS: FERROUS SULFATE 325 MG TAB PEG SCH ×2 (09:34→16:12)
[2018-09-24] MEDS: PANTOPRAZOLE 40 MG 10ML VIAL IV SCH (09:34)
[2018-09-24] MEDS: FUROSEMIDE INJ 10 MG/ML 4 ML VIAL IV SCH (09:34)
[2018-09-24] MEDS: DOCUSATE SODIUM LIQD 100 MG/10 ML UDC PEG SCH ×2 (09:34→21:50)
[2018-09-24] MEDS: BRIMONIDINE/TIMOLOL (OPTH SOLN 5 ML DRPETTE OP SCH ×2 (09:34→16:12)
[2018-09-24] MEDS: RIVASTIGMINE TARTRATE 1.5 MG CAP PEG SCH ×2 (09:34→21:50)
[2018-09-24] MEDS: CHLORTHALIDONE 25 MG TAB PEG SCH (09:34)
[2018-09-24] MEDS: MULTIVITAMINS/MINERALS TAB PEG SCH (09:34)
--- NOTE | 2018-09-24 09:34 | NUR ---
ASSESSED PATIENT'S RESIDUAL, NONE NOTED AT THIS TIME. PATIENT TOLERATING FEEDING.
[2018-09-24] MEDS: AMLODIPINE BESYLATE 10 MG TAB PO SCH (09:35)
[2018-09-24] MEDS: LABETALOL HCL 200 MG TAB PEG SCH ×2 (09:35→21:50)
[2018-09-24] MEDS: CALCIUM CARBONATE 500 MG CHEWABLE TABS PEG SCH (09:35)
[2018-09-24] MEDS: DONEPEZIL HCL 5 MG TAB PO SCH (09:35)
--- NOTE | 2018-09-24 12:10 | NUR ---
ASSESSED PATIENT'S RESIDUAL, NO RESIDUAL NOTED AT THIS TIME.
--- NOTE | 2018-09-24 14:33 | Progress Note ---
DATE: September 24, 2018 PULMONARY MEDICINE PROGRESS NOTE SUBJECTIVE: Mr. Cristobal was seen and examined at bedside. He continues to have slow progress. No hemant bleeding has recurred. His stools were a little bit greenish today. The patient remains sleepy. His medicines were decreased yesterday and we await response. He is accepting tube feeds, Glucerna 1.2 at 60 mL an hour and water at 200 mL every 6 hours. Oxygen 4 liters per minute by nasal cannula. REVIEW OF SYSTEMS: Cannot get as he is not responding. OBJECTIVE VITAL SIGNS: Afebrile. Vital signs noted per electronic record. GENERAL: In no acute distress, alert and calm, sleepy. He is tough to arouse but he does not really maintain wakefulness. HEENT: Normocephalic, atraumatic. NECK: Supple. Throat midline. LUNGS: Bilateral air entry, clear. CARDIOVASCULAR: S1 and S2. No murmurs, rubs, or gallops. ABDOMEN: Soft, nontender. EXTREMITIES: No clubbing, no cyanosis. There is trace edema to the legs. INTEGUMENT: No rash. No purpura. LABS: 4.0 potassium, 1.5 creatinine, 17 white count, 30 hematocrit yesterday. IMPRESSION AND PLAN 1. Aspiration, likely clinically better. 2. Dysphagia, status post percutaneous endoscopic gastrostomy tube. 3. Subdural hematoma, status post subdural hematoma evacuation. 4. Recurrent gastrointestinal bleed, known 20-mm rectal ulcer. 5. History of constipation. Continue to prevent constipation. Follow up while ulcer is healing. Follow with GI. Maintain Simpson for urinary obstruction. The patient furthermore will continue on tube feeds. We decreased his medicines yesterday for Parkinson's and we await a little bit better awakening. I counseled the that we do not want him overly sedated because he can choke. Job#: [id number]
--- NOTE | 2018-09-24 16:10 | NUR ---
ASSESSED RESIDUAL, NONE NOTED AT THIS TIME.
--- NOTE | 2018-09-24 19:24 | NUR ---
REPORT GIVEN TO ONCOMING NURSE, WALKING ROUNDS DONE. PATIENT IS RESTING IN BED, NO ACUTE DISTRESS NOTED. CALL LIGHT WITHIN REACH. BED IN THE LOWEST POSITION. BED ALARM ON.
--- NOTE | 2018-09-24 19:25 | NUR ---
RECEIVED PATIENT IN BED WITH EYES CLOSED. NO RESP DISTRESS. ON 02 N/C @ 3L. NO SIGNS OF PAIN OBSERVED. PEG TUBE IN PLACE AND RUNNING FEEDING @ 60CC/HR. BED LOCKED IN LOWEST POSITION AND X2 RAILS UP.
[2018-09-24] MEDS: LATANOPROST(OPTH) 2.5 ML BTL OU SCH (21:50)
--- NOTE | 2018-09-24 22:20 | NUR ---
ASSESSED TUBE FEEDINGS. NO RESIDUALS NOTED. PATIENT TOLERATING FEEDINGS. NO VOMITING.
--- NOTE | 2018-09-24 22:35 | NUR ---
ASSISTED WITH BED BATH. APPLIED PINK FOAM DRESSING TO SACRAL. DRESSING TO UPPER BACK C/D/I. REPOSITIONED PATIENT COMFORTABLY WITH BED LOCKED IN LOWEST POSITION.
[2018-09-24] MEDS: INSULIN GLARGINE 100 UNITS/ML VIAL SQ SCH (22:45)
[2018-09-25] VITALS (7 sets, daily range): BP systolic 106–127; BP diastolic 60–72
--- NOTE | 2018-09-25 00:02 | NUR ---
ASSESSED TUBE FEEDINGS. NO RESIDUALS NOTED. PATIENT TOLERATING FEEDINGS.
[2018-09-25] MEDS: [UNRECOGNIZED DRUG - OTHER] PEG SCH ×3 (01:06→18:00)
[2018-09-25] MEDS: CARBIDOPA/LEVODOPA 25/100 TAB PO SCH ×4 (01:17→17:00)
[2018-09-25] MEDS: INSULIN LISPRO 100 UNIT/1 ML 3ML VIAL SQ SCH ×4 (01:18→18:26)
[2018-09-25] MEDS: IPRATROPIUM BROMIDE 0.02% 2.5 ML NEB NEB SCH ×6 (03:00→23:20)
--- NOTE | 2018-09-25 03:50 | NUR ---
NOTED PATIENT SWEATING. BS 263. NO RESP DISTRESS. REMOVED 2 HEAVY BLANKETS AND REPOSITIONED PATIENT COMFORTABLY. NO SIGNS OF PAIN OBSERVED.
[2018-09-25] MEDS: METRONIDAZOLE 500MG/NS 100ML 100 ML IV SCH ×3 (05:36→21:23)
[2018-09-25] MEDS: LEVOTHYROXINE SODIUM 50 MCG TAB PO SCH (05:36)
[2018-09-25 05:50] LABS: BASOPHILS # (AUTO) 0.1 (0.0-0.1); BASOPHILS % 0.4 % (0.0-1.0); EOSINOPHILS # (AUTO) 0.2 (0.0-0.4); EOSINOPHILS % 1.1 % (0.0-6.0); HEMATOCRIT 30.1 % (38.2-49.6); HEMOGLOBIN 9.9 g/dL (14.0-18.0); LYMPHOCYTES # (AUTO) 1.4 (1.0-3.2); LYMPHOCYTES % 8.4 % (18.0-39.1); MEAN CORPUSCULAR HEMOGLOBIN 29.9 pg (28-32); MEAN CORPUSCULAR HGB CONC 32.9 g/dL (31-35); MEAN CORPUSCULAR VOLUME 90.9 fL (81-99); MONOCYTES # (AUTO) 1.3 (0.2-0.8); MONOCYTES % 7.3 % (4.4-11.3); NEUTROPHILS # (AUTO) 12.3 (2.1-6.9); NEUTROPHILS % 71.8 % (38.7-80.0); PLATELET COUNT 332 x10e3/uL (140-360); RED BLOOD COUNT 3.31 x10e6/uL (4.3-5.7); RED CELL DISTRIBUTION WIDTH 13.9 % (11.7-14.4)
--- NOTE | 2018-09-25 06:05 | NUR ---
ASSESSED RESIDUAL, NONE NOTED AT THIS TIME.
--- NOTE | 2018-09-25 07:02 | NUR ---
RECEIVED PATIENT RESTING IN BED. NO ACUTE DISTRESS NOTED. CALL LIGHT WITHIN REACH. BED IN THE LOWEST POSITION. BED ALARM ON.
[2018-09-25 07:44] LABS: ANISOCYTOSIS SLIGHT; HYPOCHROMASIA SLIGHT; LYMPHOCYTES % (MANUAL) 12 % (19-48); METAMYELOCYTES % (MANUAL) 4 % (0-0); MONOCYTES % (MANUAL) 10 % (3.4-9.0); MYELOCYTES % (MANUAL) 3 % (0-0); NEUTROPHILS % (MANUAL) 70 % (40-74); PLATELET ESTIMATE ADEQUATE; PLATELET MORPHOLOGY COMMENT NORMAL; RBC MORPHOLOGY COMMENT NORMAL
--- NOTE | 2018-09-25 08:26 | NUR ---
CM SPOKE TO PATIENT AND PATIENT AT BEDSIDE REGARDING IMM LETTER. IMM LETTER GIVEN WITH EXPLANATION BASED ON ANTICIPATED DISCHARGE DATE WITHIN 48 HOURS. ORIGINAL SIGNED BY AND PLACED IN CHART. PATIENT; COPY OF ORIGINAL DOCUMENT GIVEN TO PATIENT AT BEDSIDE AND PLACED IN CARE TRANSITION FOLDER. CM CONTACT INFORMATION GIVEN TO PATIENT FOR ANY NEEDS OR CONCERNS. PATIENT WITH NO FURTHER QUESTIONS. Addendum: 09/25/18 at 0827 by Fe Patino CM LATE ENTRY
--- NOTE | 2018-09-25 09:45 | NUR ---
ASSESSED PATIENT'S RESIDUAL, NONE NOTED. PATIENT TOLERATING FEEDING WELL.
[2018-09-25] MEDS: FERROUS SULFATE 325 MG TAB PEG SCH ×2 (09:46→17:00)
[2018-09-25] MEDS: RIVASTIGMINE TARTRATE 1.5 MG CAP PEG SCH ×2 (09:46→21:23)
[2018-09-25] MEDS: BRIMONIDINE/TIMOLOL (OPTH SOLN 5 ML DRPETTE OP SCH ×2 (09:46→17:00)
[2018-09-25] MEDS: DOCUSATE SODIUM LIQD 100 MG/10 ML UDC PEG SCH ×2 (09:46→21:23)
[2018-09-25] MEDS: DONEPEZIL HCL 5 MG TAB PO SCH (09:46)
[2018-09-25] MEDS: MULTIVITAMINS/MINERALS TAB PEG SCH (09:46)
[2018-09-25] MEDS: CHLORTHALIDONE 25 MG TAB PEG SCH (09:46)
[2018-09-25] MEDS: FUROSEMIDE INJ 10 MG/ML 4 ML VIAL IV SCH (09:46)
[2018-09-25] MEDS: CALCIUM CARBONATE 500 MG CHEWABLE TABS PEG SCH (09:46)
[2018-09-25] MEDS: LABETALOL HCL 200 MG TAB PEG SCH ×2 (09:46→21:23)
[2018-09-25] MEDS: AMLODIPINE BESYLATE 10 MG TAB PO SCH (09:46)
[2018-09-25] MEDS: PANTOPRAZOLE 40 MG 10ML VIAL IV SCH (09:46)
[2018-09-25] MEDS: CEFTRIAXONE SOD 1 GM/NS 50 ML 50 ML IV SCH (09:46)
--- NOTE | 2018-09-25 12:05 | NUR ---
ASSESSED PATIENT'S RESIDUAL AT THIS TIME, NONE NOTED. WILL CONTINUE TO MONITOR.
--- NOTE | 2018-09-25 17:00 | NUR ---
ASSESSED PATIENT'S RESIDUAL, NO RESIDUAL NOTED AT THIS TIME.
--- NOTE | 2018-09-25 19:00 | NUR ---
Received patient from day nurse, patient is alert and oriented, introduced myself to patient and patient made aware of the importance of calling for help, patient verbalized understanding. safety and fall precaution maintained as per hospital protocol:bed in lowest position and locked, needed items beside bed and call andrade placed close to patient, yellow socks on patient, bed alarm set, and room made free of clutter. patient is currently stable will continue to monitor. 2 Addendum: 09/26/18 at 0050 by Angelo Thurman RN patient is verbal but non coherent, patient is alert but not oriented, patient is being monitored close
--- NOTE | 2018-09-25 19:32 | NUR ---
REPORT GIVEN TO ONCOMING NURSE, WALKING ROUNDS DONE. PATIENT RESTING IN BED. RESPIRATIONS EVEN AND UNLABORED. NO ACUTE DISTRESS NOTED. CALL LIGHT WITHIN REACH. BED IN THE LOWEST POSITION. BED ALARM ON.
[2018-09-25] MEDS: LATANOPROST(OPTH) 2.5 ML BTL OU SCH (21:23)
[2018-09-25] MEDS: INSULIN GLARGINE 100 UNITS/ML VIAL SQ SCH (23:36)
[2018-09-26] VITALS (7 sets, daily range): BP systolic 107–146; BP diastolic 65–80
[2018-09-26] MEDS: INSULIN LISPRO 100 UNIT/1 ML 3ML VIAL SQ SCH ×4 (00:45→18:18)
--- NOTE | 2018-09-26 00:55 | NUR ---
2000: patient rounded : bed in lowest position and locked, needed items beside bed and call andrade placed close to patient, yellow socks on patient, bed alarm is on, room is free of clutter. patient is currently stable will continue to monitor. feeding ongoing, aguero intact 2200: patient rounded : bed in lowest position and locked, needed items beside bed and call andrade placed close to patient, yellow socks on patient, bed alarm is on, room is free of clutter. patient is currently stable will continue to monitor
[2018-09-26] MEDS: CARBIDOPA/LEVODOPA 25/100 TAB PO SCH ×4 (02:25→17:30)
[2018-09-26] MEDS: IPRATROPIUM BROMIDE 0.02% 2.5 ML NEB NEB SCH ×6 (03:00→23:00)
[2018-09-26 05:38] LABS: BASOPHILS # (AUTO) 0.1 (0.0-0.1); BASOPHILS % 0.4 % (0.0-1.0); EOSINOPHILS # (AUTO) 0.2 (0.0-0.4); EOSINOPHILS % 1.3 % (0.0-6.0); HEMATOCRIT 34.3 % (38.2-49.6); HEMOGLOBIN 11.1 g/dL (14.0-18.0); LYMPHOCYTES # (AUTO) 1.4 (1.0-3.2); LYMPHOCYTES % 7.6 % (18.0-39.1); MEAN CORPUSCULAR HEMOGLOBIN 29.5 pg (28-32); MEAN CORPUSCULAR HGB CONC 32.4 g/dL (31-35); MEAN CORPUSCULAR VOLUME 91.2 fL (81-99); MONOCYTES # (AUTO) 1.1 (0.2-0.8); MONOCYTES % 6.4 % (4.4-11.3); NEUTROPHILS # (AUTO) 13.1 (2.1-6.9); NEUTROPHILS % 73.9 % (38.7-80.0); PLATELET COUNT 303 x10e3/uL (140-360); RED BLOOD COUNT 3.76 x10e6/uL (4.3-5.7); RED CELL DISTRIBUTION WIDTH 13.9 % (11.7-14.4)
--- NOTE | 2018-09-26 05:47 | Progress Note ---
DATE: 09/25/2018 Pulmonary Medicine progress note. SUBJECTIVE: Mr. Cristobal was seen and examined at bedside. He continues to have a weak status. Simpson is in. 3 L/min by nasal cannula. He did wake up and he was talking for hours in the morning. Glucerna 1.5 at 60 mL/hr. Water 200 mL every 6 hours. once again exhausted. REVIEW OF SYSTEMS: Cannot get, as he is altered. OBJECTIVE: VITAL SIGNS: Afebrile. Vital signs noted per the chart record. GENERAL: Very weak, pale, but looks chronic, totally dependent for ADLs. HEENT: Normocephalic and atraumatic. NECK: Supple. Throat midline. LUNGS: Bilateral air entry. clear. CARDIOVASCULAR: S1 and S2. No murmurs, rubs, or gallops. ABDOMEN: Soft and nontender. EXTREMITIES: No clubbing. No cyanosis. There is 1+ edema. INTEGUMENT: No rash or purpuras. No new labs. IMPRESSION: 1. Aspiration. 2. Dysphagia, status post PEG tube. 3. Recurrent lower gastrointestinal bleed. 4. Parkinson disorder. 5. Urinary obstruction. PLAN: Repeat CBCs tomorrow. Continue toileting the patient's airways. Continue tube-feeds and water. Continue to adjust medicines, as he is very weak. He is better today, but still suboptimal. He still has to do a lot of rehab. Continue to follow up for GI bleed. There could be a risk of re-bleeding and GI told us that he is optimal for now. Per GI, it is okay to transfer to [facility]. MD TITA Castro/LACY /[id number]
[2018-09-26] MEDS: LEVOTHYROXINE SODIUM 50 MCG TAB PO SCH (05:52)
[2018-09-26] MEDS: METRONIDAZOLE 500MG/NS 100ML 100 ML IV SCH ×3 (05:52→21:33)
[2018-09-26] MEDS: [UNRECOGNIZED DRUG - OTHER] PEG SCH ×4 (05:53→16:12)
[2018-09-26 05:58] LABS: CALCIUM 9.3 mg/dL (8.4-10.2); CREATININE, SERUM 1.49 mg/dL (0.72-1.25); MAGNESIUM 2.7 MG/DL (1.3-2.1)
--- NOTE | 2018-09-26 06:11 | NUR ---
0200: patient rounded : bed in lowest position and locked, needed items beside bed and call andrade placed close to patient, yellow socks on patient, bed alarm is on, room is free of clutter. patient is currently stable will continue to monitor. 0600: patient rounded : bed in lowest position and locked, needed items beside bed and call andrade placed close to patient, yellow socks on patient, bed alarm is on, room is free of clutter. patient is currently stable will continue to monitor.
--- NOTE | 2018-09-26 06:12 | Diagnostic Imaging Report ---
EXAMINATION: CHEST SINGLE (PORTABLE) INDICATION: ^aspiration ^[id number] ^[id number] COMPARISON: 09/23/2018 FINDINGS: AP view TUBES and LINES: None. LUNGS: Persistent right lung opacities. PLEURA: No significant pleural effusion or pneumothorax. HEART AND MEDIASTINUM: The cardiomediastinal silhouette is prominent on this AP view. Median sternotomy wires. BONES AND SOFT TISSUES: No acute osseous lesion. Soft tissues are unremarkable. UPPER ABDOMEN: No free air under the diaphragm. IMPRESSION: Persistent right lung opacities, concerning for pneumonia. Signed by: Dr. Malachi Phan MD on 09/26/2018 6:09 AM
--- NOTE | 2018-09-26 06:48 | NUR ---
Patient condition throughout the night was stable, report given to Nurse Multani for continuity of care.
--- NOTE | 2018-09-26 09:34 | NUR ---
CM SPOKE TO PATIENT AND PATIENT AT BEDSIDE REGARDING IMM LETTER. IMM LETTER GIVEN WITH EXPLANATION BASED ON ANTICIPATED DISCHARGE DATE WITHIN 48 HOURS. ORIGINAL SIGNED BY ; PATIENT UNABLE TO SIGN; COPY OF ORIGINAL PLACED IN CHART; COPY OF ORIGINAL DOCUMENT GIVEN TO PATIENT AT BEDSIDE AND PLACED IN CARE TRANSITION FOLDER. CM CONTACT INFORMATION GIVEN TO PATIENT FOR ANY NEEDS OR CONCERNS. PATIENT WITH NO FURTHER QUESTIONS.
--- NOTE | 2018-09-26 09:35 | NUR ---
CM SPOKE TO PATIENT AT BEDSIDE REGARDING IMM LETTER. IMM LETTER GIVEN WITH EXPLANATION BASED ON ANTICIPATED DISCHARGE DATE WITHIN 48 HOURS. ORIGINAL SIGNED; COPY OF ORIGINAL PLACED IN CHART; COPY OF ORIGINAL DOCUMENT GIVEN TO PATIENT AT BEDSIDE AND PLACED IN CARE TRANSITION FOLDER. CM CONTACT INFORMATION GIVEN TO PATIENT FOR ANY NEEDS OR CONCERNS. PATIENT WITH NO FURTHER QUESTIONS.
[2018-09-26] MEDS: DONEPEZIL HCL 5 MG TAB PO SCH (09:50)
[2018-09-26] MEDS: PANTOPRAZOLE 40 MG 10ML VIAL IV SCH (09:50)
[2018-09-26] MEDS: LABETALOL HCL 200 MG TAB PEG SCH ×2 (09:50→21:36)
[2018-09-26] MEDS: MULTIVITAMINS/MINERALS TAB PEG SCH (09:50)
[2018-09-26] MEDS: DOCUSATE SODIUM LIQD 100 MG/10 ML UDC PEG SCH ×2 (09:50→21:36)
[2018-09-26] MEDS: FUROSEMIDE INJ 10 MG/ML 4 ML VIAL IV SCH (09:50)
[2018-09-26] MEDS: CEFTRIAXONE SOD 1 GM/NS 50 ML 50 ML IV SCH (09:50)
[2018-09-26] MEDS: AMLODIPINE BESYLATE 10 MG TAB PO SCH (09:50)
[2018-09-26] MEDS: BRIMONIDINE/TIMOLOL (OPTH SOLN 5 ML DRPETTE OP SCH ×2 (09:50→17:30)
[2018-09-26] MEDS: CHLORTHALIDONE 25 MG TAB PEG SCH (09:50)
[2018-09-26] MEDS: RIVASTIGMINE TARTRATE 1.5 MG CAP PEG SCH ×2 (09:50→21:36)
[2018-09-26] MEDS: CALCIUM CARBONATE 500 MG CHEWABLE TABS PEG SCH (09:50)
[2018-09-26] MEDS: FERROUS SULFATE 325 MG TAB PEG SCH ×2 (09:50→17:30)
[2018-09-26] MEDS ORDERED: DIATRIZOATE MEGL/DIATRIZOA SOD 30 ML BTL PO ONE (11:52)
--- NOTE | 2018-09-26 13:35 | NUR ---
RECEIVED NOTICE OF DENIAL FOR EVITA. P2P IS OFFERED. CALL TO DR. ALVARADO TO NOTIFY OF DENIAL AND P2P. DR. ALVARADO AGREED TO P2P. NOTIFIED DEBRA OF THIS. SHE WILL ARRANGE P2P W DR. ALVARADO. WILL NOTIFY PT AND FAMILY.
--- NOTE | 2018-09-26 16:46 | NUR ---
WOUND CARE CONSULTATION Patient admitted from [facility] for GI Bleed. Wound Care Consulted For Sacral Ulcer Evaluation. -Bernabe Score 10 -Alternating Pressure Air Mattress -Strict PUP Active. - Bilateral Heel Protectors in Place. WBC17.73 HGB11.1 HCT34.3 NEUT%73.9 VUW270 Patient on IV ABX PATIENT VISIT: - Bilateral Heels intact. no redness, no pressure ulcers identified. - PEG+ - Diapered - Left Sacro-gluteal - annular ( 1x1 cm) purple, non-blanching ulcer. - Right Upper Back - Healing/ Absorbed- Multiple Blisters (0.3x0.3cm )in clusters over area of 5x5 cm Non-raised, Non-Reddened, Not Tender, Appears stable and resolving. RECOMMENDATION: - Continue Strict PUP - Continue Alternating Pressure Air Mattress - Left Sacro-gluteal Ulcer - Deep Tissue Injury - Venelex Ointment And Cover with Allevyn Foam sacrum Dressing Daily. - Bilateral Heels - Allevyn Foam Sacrum Daily (goal: reduce shear friction ) - Bilateral Heel Protectors/ Offload Heels with Pillows. - Continue Turning and repositioning every 2 hours Thank you for Consulting with Wound Care. Addendum: 09/26/18 at 1703 by Prashant Guerrero RN Amended: Links added.
--- NOTE | 2018-09-26 18:15 | Diagnostic Imaging Report ---
EXAMINATION: Head CT HISTORY: Alteration of consciousness, GI bleed, history of recent subdural hematoma COMPARISON: Head CT 08/15/2018 TECHNIQUE: Multidetector axial images were obtained without contrast from the foramen magnum to the vertex . The images were reconstructed using brain and bone algorithms. Thin section brain images were reformatted into coronal and sagittal planes. Image quality: Motion/streaking artifact limits the evaluation of the skull base and posterior cranial fossa. Dose modulation, iterative reconstruction, and/or weight based adjustment of the mA/kV was utilized to reduce the radiation dose to as low as reasonably achievable. FINDINGS: Parenchyma: 1. Persistent moderate chronic lateral aspect ischemic changes. 2. No mass or hemorrhage. No CT evidence of acute territorial vascular insult. Extra-axial spaces:No abnormal density. No extra-axial fluid collections Brain volume: Persistent nodular-like interval growth with minimal right medial temporal predominance. Ventricles: No hydrocephalus or displacement. Arteries: No density suggestive of thrombus. Dural sinuses: No abnormal density. Extra-axial spaces: No abnormal density. Foramen magnum: No mass, Chiari malformation, or basilar invagination. Sella: No obvious mass. Paranasal/mastoid sinuses: Unchanged complete opacification of the left sphenoid sinus with sclerotic changes of the irvin/ascites, related to chronic inflammatory process. Skull/Scalp: Interval right parietal craniotomy , tiny approximately 5 mm thickness right parietal extra-axial collection underneath the craniotomy flap without associated mass effect or midline shift. IMPRESSION: 1. No acute intracranial hemorrhage or cortical infarcts. 2. Interval right parietal craniotomy with expected postoperative tiny fluid collection underneath the craniotomy flap, no associated mass effect or midline shift. 3. Unchanged chronic left sphenoid sinusitis. Signed by: Dr. Krystal Muhammad M.D. on 09/26/2018 6:12 PM
--- NOTE | 2018-09-26 20:07 | NUR ---
Received patient from day nurse, patient is alert but non verbal, introduced myself to patient. safety and fall precaution maintained as per hospital protocol:bed in lowest position and locked, needed items beside bed and call andrade placed close to patient, yellow socks on patient, bed alarm set, and room made free of clutter. patient on tube feeding rate as ordered, peg site cleaned and patient repositioned to prevent pu, patient is currently stable will continue to monitor.
[2018-09-26] MEDS ORDERED: LATANOPROST(OPTH) 2.5 ML BTL OU SCH (21:00)
[2018-09-26] MEDS: BALSAM PERU/CASTOR OIL 60 GM OINT...G. TP SCH (21:36)
[2018-09-26] MEDS: INSULIN GLARGINE 100 UNITS/ML VIAL SQ SCH (21:55)
--- NOTE | 2018-09-26 22:56 | Progress Note ---
DATE: 09/26/2018 Pulmonary Medicine Progress Note SUBJECTIVE: Mr. Cristobal was seen and examined at bedside. He continues to have slow progress. reports he phonated a few words today. The patient was . He still is with overall depressed mentation. No high amount of tremulousness noted. The patient tolerating tube feeds at 60 mL per hour, water is at 200 mL every 6 hours. REVIEW OF SYSTEMS: Cannot get reliably, as he is altered. OBJECTIVE: VITAL SIGNS: Afebrile. Vital signs noted per the chart record. GENERAL: He is in no acute distress, but he looked weak, chronic, and very fragile. HEENT: Normocephalic, atraumatic. NECK: Supple. Throat midline. LUNGS: Bilateral air entry, CARDIOVASCULAR: S1 and S2. No murmurs, rubs, or gallops. ABDOMEN: Soft and nontender. EXTREMITIES: No clubbing. No cyanosis. There is 1+ edema. INTEGUMENT: No rash or purpura. LABORATORY DATA: hematocrit 34, and platelets 203. Chest x-ray with stable infiltrates, mainly right side. Moderate-sized infiltrates. IMPRESSION AND PLAN: 1. Recurrent gastrointestinal bleed. Known 20 mm rectal ulcer. 2. Aspiration. 3. Encephalopathy, multifactorial. 4. Subdural hemorrhage, status post evacuation surgically. 5. Acute/chronic kidney failure, recently improved. 6. Debility. 7. . 8. Leukocytosis, not otherwise specified. CAT scan of the chest, abdomen, and pelvis today. given the encephalopathy, which is lagging in terms of recovery. Continuing to modify medicines and I will go down on the Exelon patch today. Continue Sinemet. The patient will have continued supportive treatment. Continue antibiotics for now. The patient needs aggressive restorative care given his semi-rigidity and continue follow up for GI bleed and will need appropriate treatment if he has significant . GI wants to giving him more time for consideration of endoscopy. MD TITA Castro/LACY /[id number]
[2018-09-27] VITALS: BP 142/86
[2018-09-27] MEDS: INSULIN LISPRO 100 UNIT/1 ML 3ML VIAL SQ SCH ×3 (00:45→12:50)
[2018-09-27] MEDS: CARBIDOPA/LEVODOPA 25/100 TAB PO SCH ×4 (01:52→17:36)
[2018-09-27] MEDS: IPRATROPIUM BROMIDE 0.02% 2.5 ML NEB NEB SCH ×3 (03:22→11:00)
[2018-09-27 04:00] VITALS: BP 141/86
[2018-09-27 05:47] LABS: BASOPHILS # (AUTO) 0.1 (0.0-0.1); BASOPHILS % 0.4 % (0.0-1.0); EOSINOPHILS # (AUTO) 0.2 (0.0-0.4); EOSINOPHILS % 1.1 % (0.0-6.0); HEMATOCRIT 35.9 % (38.2-49.6); HEMOGLOBIN 11.1 g/dL (14.0-18.0); LYMPHOCYTES # (AUTO) 1.5 (1.0-3.2); MEAN CORPUSCULAR HEMOGLOBIN 30.3 pg (28-32); MEAN CORPUSCULAR HGB CONC 30.9 g/dL (31-35); MEAN CORPUSCULAR VOLUME 98.1 fL (81-99); MONOCYTES % 5.8 % (4.4-11.3); NEUTROPHILS # (AUTO) 12.7 (2.1-6.9); NEUTROPHILS % 74.4 % (38.7-80.0); PLATELET COUNT 246 x10e3/uL (140-360); RED BLOOD COUNT 3.66 x10e6/uL (4.3-5.7)
--- NOTE | 2018-09-27 05:55 | NUR ---
0555:Patient received haldol for agitation, 0655: Report given to day nurse for continuity of care.
[2018-09-27] MEDS: HALOPERIDOL LACTATE 5 MG/ML VIAL IV PRN (05:57)
[2018-09-27] MEDS: [UNRECOGNIZED DRUG - OTHER] PEG SCH ×4 (06:00→17:05)
[2018-09-27] MEDS: LEVOTHYROXINE SODIUM 50 MCG TAB PO SCH (06:06)
[2018-09-27] MEDS: METRONIDAZOLE 500MG/NS 100ML 100 ML IV SCH (06:06)
--- NOTE | 2018-09-27 07:44 | Diagnostic Imaging Report ---
EXAMINATION: CT of the chest, abdomen and pelvis without contrast. TECHNIQUE: Spiral CT images of the chest, abdomen and pelvis were performed from the lung apices to the lesser trochanters after the oral administration of Gastrografin. No intravenous contrast was administered per reported iodine allergy. Coronal and sagittal reformatted images were obtained. COMPARISON: Chest radiograph 09/26/2018 CLINICAL HISTORY:GI bleed, recent subdural hematoma, altered mental status DISCUSSION: CHEST: LINES/TUBES: None. LUNGS AND AIRWAYS: Multifocal consolidations and groundglass opacities predominantly involving the right upper lobe and bilateral lower lobes. Superimposed right apical pleural-parenchymal scar. Debris is noted in the dependent portion of the trachea above the bifurcation. Mainstem bronchi, lobar and segmental bronchi are otherwise patent. PLEURA: Small right and trace left pleural effusions. No pneumothorax. HEART AND MEDIASTINUM: Visualized portions of the thyroid gland appear normal. No ectasia or aneurysmal dilatation of the thoracic aorta. Incidental note of a common origin of the innominate and left common carotid artery from the aortic arch. Atherosclerotic calcifications of the [place] coronary arteries and innominate artery. The pulmonary outflow tract is of normal caliber. No pericardial effusion. LYMPH NODES: No significant mediastinal, hilar or axillary lymphadenopathy is seen. BONES AND SOFT TISSUES: Osseous structures are discussed below. ABDOMEN/PELVIS: Evaluation is limited secondary to the patient's arms being at his side and over the anterior abdomen through the examination. HEPATOBILIARY:No focal hepatic lesions. No biliary ductal dilation. The gallbladder is normal. SPLEEN: No splenomegaly. PANCREAS: No focal masses or ductal dilatation. ADRENALS: No adrenal nodules. KIDNEYS/URETERS: Exophytic low-attenuation lesion projecting from the upper pole of the left kidney, average internal attenuation 8 Hounsfield units. Similar peripelvic lesions the left kidney, both with average internal attenuation less than 10 Hounsfield units. No hydronephrosis or calculi. PELVIC ORGANS/BLADDER: Simpson catheter within the urinary bladder. Air in the nondependent portion of the bladder presumably related to instrumentation. Prostatic brachytherapy seeds. PERITONEUM/RETROPERITONEUM: No free air or fluid. LYMPH NODES: No pelvic sidewall, retroperitoneal, or mesenteric lymphadenopathy. VESSELS: Limited evaluation without intravenous contrast. The abdominal aorta is nonaneurysmal. Mild atherosclerotic calcification. GI TRACT: The large bowel is notable for innumerable sigmoid and descending colon diverticula without wall thickening or adjacent inflammatory change. The appendix is identified and appears normal. A bolster retention gastrostomy catheter terminates within the gastric body. Endoscopic clips are noted at the gastroesophageal junction. The distal stomach is collapsed. There is no small bowel dilatation to suggest obstruction. BONES AND SOFT TISSUES: Diffuse muscular atrophy. No additional focal soft tissue abnormalities. Postsurgical changes related to anterior lower cervical spine fusion. Multiple median sternotomy wires. Extensive degenerative disc changes of the thoracolumbar spine with moderate spinal canal stenosis at L1-L2 secondary to a peripherally calcified disc protrusion. Probable bone island in the right iliac wing. No osseous destructive lesions. IMPRESSION: Multifocal pneumonia or aspiration pneumonitis predominantly involving the right upper lobe and bilateral lower lobes. Small right and trace left parapneumonic effusion. No acute intra-abdominal or pelvic CT abnormalities. Large bowel diverticulosis without findings of diverticulitis. Atherosclerotic vascular disease. Multilevel degenerative disc changes of the thoracolumbar spine with moderate spinal canal stenosis at L1-L2 secondary to disc protrusion as described above. Signed by: Dr. Corbin Laurent M.D. on 09/27/2018 7:41 AM
[2018-09-27 07:48] VITALS: BP 121/69
[2018-09-27 08:08] LABS: BAND NEUTROPHILS % (MANUAL) 6 %; LYMPHOCYTES % (MANUAL) 7 % (19-48); METAMYELOCYTES % (MANUAL) 1 % (0-0); MONOCYTES % (MANUAL) 2 % (3.4-9.0); NEUTROPHILS % (MANUAL) 83 % (40-74); PLATELET ESTIMATE ADEQUATE; PLATELET MORPHOLOGY COMMENT NORMAL; RBC MORPHOLOGY COMMENT NORMAL
[2018-09-27] MEDS ORDERED: BALSAM PERU/CASTOR OIL 60 GM OINT...G. TP SCH (09:00)
[2018-09-27] MEDS: BALSAM PERU/CASTOR OIL 60 GM OINT...G. TP SCH (09:30)
[2018-09-27] MEDS: BRIMONIDINE/TIMOLOL (OPTH SOLN 5 ML DRPETTE OP SCH ×2 (09:56→17:36)
[2018-09-27] MEDS: MULTIVITAMINS/MINERALS TAB PEG SCH (09:56)
[2018-09-27] MEDS: CHLORTHALIDONE 25 MG TAB PEG SCH (09:56)
[2018-09-27] MEDS: FERROUS SULFATE 325 MG TAB PEG SCH ×2 (09:56→17:36)
[2018-09-27] MEDS: LABETALOL HCL 200 MG TAB PEG SCH (09:56)
[2018-09-27] MEDS: RIVASTIGMINE TARTRATE 1.5 MG CAP PEG SCH (09:56)
[2018-09-27] MEDS: AMLODIPINE BESYLATE 10 MG TAB PO SCH (09:56)
[2018-09-27] MEDS: DOCUSATE SODIUM LIQD 100 MG/10 ML UDC PEG SCH (09:56)
[2018-09-27] MEDS: CALCIUM CARBONATE 500 MG CHEWABLE TABS PEG SCH (09:56)
[2018-09-27] MEDS: PANTOPRAZOLE 40 MG 10ML VIAL IV SCH (09:56)
[2018-09-27] MEDS: DONEPEZIL HCL 5 MG TAB PO SCH (09:56)
[2018-09-27] MEDS: CEFTRIAXONE SOD 1 GM/NS 50 ML 50 ML IV SCH (09:56)
[2018-09-27] MEDS: FUROSEMIDE INJ 10 MG/ML 4 ML VIAL IV SCH (09:56)
[2018-09-27 09:58] VITALS: BP 121/69
[2018-09-27] MEDS ORDERED: VANCOMYCIN 1GM/NS 250 ML 250 ML IV SCH (11:00)
[2018-09-27 12:08] VITALS: BP 92/58
[2018-09-27] MEDS ORDERED: SODIUM CHLORIDE 0.9% 250ML 250 ML ONE (12:34)
[2018-09-27] MEDS: ACETAMINOPHEN 325 MG/10 ML UDC PEG PRN ×2 (12:50→17:27)
[2018-09-27] MEDS ORDERED: LACTULOSE SYRUP 20 GM/30 ML UDC PO NR (13:00)
[2018-09-27] MEDS ORDERED: Insulin Glargine SQ (13:24)
[2018-09-27] MEDS ORDERED: HALOPERIDOL5 MG/1 M1 IV (13:24)
[2018-09-27] MEDS ORDERED: LACTULOSE20 GM/30 M PO (13:24)
[2018-09-27] MEDS ORDERED: ONDANSETRON4 MG/2 M1 IV (13:24)
[2018-09-27] MEDS ORDERED: XALATAN2.5 ML OU (13:24)
[2018-09-27] MEDS ORDERED: COMBIGAN EYE DRO5 ML OP (13:24)
[2018-09-27] MEDS ORDERED: ARICEPT5 MG PO (13:24)
[2018-09-27] MEDS ORDERED: Rivastigmine Tartrate PEG (13:24)
[2018-09-27] MEDS ORDERED: DULCOLAX SUPP10 MG PR (13:24)
[2018-09-27] MEDS ORDERED: COLACE100 MG/10 PEG (13:24)
[2018-09-27] MEDS ORDERED: Multivitamins/Minerals PEG (13:24)
[2018-09-27] MEDS ORDERED: LABETALOL HCL200 MG PEG (13:24)
[2018-09-27] MEDS ORDERED: VANCOMYCIN750 MG/150 IV (13:24)
[2018-09-27] MEDS ORDERED: Calcium Carbonate 500MG Chew PEG (13:24)
[2018-09-27] MEDS ORDERED: ACETAMINOP325 MG/10 PEG (13:24)
[2018-09-27] MEDS ORDERED: FUROSEMIDE10 MG/1 M1 IV (13:24)
[2018-09-27] MEDS ORDERED: IPRATROPIU0.2 MG/1 M NEB (13:24)
[2018-09-27] MEDS ORDERED: CARBIDOPA-LEVO1 EAC1 PO (13:24)
[2018-09-27] MEDS ORDERED: CHLORTHALIDONE25 MG PEG (13:24)
[2018-09-27] MEDS ORDERED: NORVASC10 MG PO (13:24)
[2018-09-27] MEDS ORDERED: Insulin Lispro SQ (13:24)
[2018-09-27] MEDS ORDERED: VENELEX OINTMEN60 GM TP (13:24)
[2018-09-27] MEDS ORDERED: ACETYLCYST200 MG/1 M INH (13:24)
[2018-09-27] MEDS ORDERED: SYNTHROID50 MCG PO (13:24)
[2018-09-27] MEDS ORDERED: MEROPENEM500 MG IV (13:24)
[2018-09-27] MEDS ORDERED: PROTONIX IV40 MG IV (13:24)
[2018-09-27] MEDS ORDERED: DOCUSATE SODIUM LIQD 100 MG/10 ML UDC PEG SCH (14:00)
[2018-09-27] MEDS ORDERED: MEROPENEM 500MG 500 MG in SODIUM CHLORIDE 0.9% 50ML 50 ML IV SCH (14:00)
--- NOTE | 2018-09-27 14:58 | NUR ---
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
[2018-09-27 15:44] VITALS: BP 109/59
[2018-09-27] MEDS ORDERED: ACETYLCYSTEINE 200 MG/ML 4ML VIAL INH SCH (19:00)
[2018-09-28] MEDS ORDERED: LACTULOSE SYRUP 20 GM/30 ML UDC PO SCH (09:00)
--- NOTE | 2018-09-29 03:10 | Discharge Summary ---
PRIMARY DIAGNOSES: 1. Acute gastrointestinal bleed, presumed lower. 2. Known 20 mm rectal ulcer diagnosed within the last month, status post recent cauterization on previous colonoscopy. 3. Aspiration. HOSPITAL COURSE: Mr. Cristobal had a recent subdural hematoma and he had evacuation surgically at the recent month. The patient was having slow recovery due to neurologic effects and furthermore due to sepsis that he was having from pneumonia as well as UTI. He had urinary obstruction, had an indwelling Simpson. The patient was also having Parkinson's medicines titrated. During this episode, he had a lower GI bleed and he was acutely transferred to [facility] for emergent care. It was felt to be large and red and this is in the setting of a recent known rectal ulcer. GI followed the hematocrit, which did not fall too much here in [facility]. They elected not to scope the patient again, as the bleeding stopped. He did have on another hospital day a small amount of red blood and for the most part, it was a raw bleeding. GI recommended conservative therapy allowing him to heal with a risk of rebleeding. As the patient remained in debilitated state still since his subdural hematoma, GI elected not to repeat colonoscopy, as treatment will be very limited as long as he is not actively bleeding. He has pneumonitis noted on CAT scan acquired prior to hospitalization. Eventually, he had CT showing the effects of decreased mentation and retained contents in the tracheobronchial airway that he needs to expectorate. Medicines were lessened. The patient had leukocytosis and had modified antibiotics. The patient eventually was allowed for discharge to [facility] facility for further care. The patient was allowed to transfer for further care. DIET: The patient is to continue Jevity at 60 mL per hour. Water at 200 mL every 6 hours. ACTIVITY: Restorative care mostly, as tolerated with therapy as he improves. MEDICATIONS AT DISCHARGE: Medication list was reconciled for outpatient management. Please see that list for details. DISPOSITION: [facility]. CONSULTANTS: Dr. Hinojosa and Dr. Ramirez. Greater than 30 minutes in direct care, coordination on this patient on discharge date. MD TITA Castro/LACY /[id number]
== END 2018-09-27 17:59 | DRG 377 ==
LOC: ICU 09-16 00:39 → IMCU 09-18 17:53 → MED/SURG3 09-21 03:42
PROVIDERS: ADMIT Internal Medicine Critical Care Medicine; ATTEND Internal Medicine Critical Care Medicine
PROC: 30233N1 Transfusion of Nonautologous Red Blood Cells into Peripheral Vein, Percutaneous Approach (ICD-10-PCS; principal; 2018-09-16)
DX: K92.2 Gastrointestinal hemorrhage, unspecified (principal); J69.0 Pneumonitis due to inhalation of food and vomit; G93.41 Metabolic encephalopathy; N17.9 Acute kidney failure, unspecified; N39.0 Urinary tract infection, site not specified; K62.6 Ulcer of anus and rectum; G20 Parkinson's disease; S06.5X9D Traumatic subdural hemorrhage with loss of consciousness of unspecified duration, subsequent encounter; R53.81 Other malaise; E87.70 Fluid overload, unspecified; I12.9 Hypertensive chronic kidney disease with stage 1 through stage 4 chronic kidney disease, or unspecified chronic kidney disease; N18.9 Chronic kidney disease, unspecified; E11.65 Type 2 diabetes mellitus with hyperglycemia; Z93.1 Gastrostomy status; Z86.79 Personal history of other diseases of the circulatory system
CPT/HCPCS: 36415; 70450; 71045; 71250; 74176; 80048; 80053; 82948; 83735; 85007; 85014; 85018; 85025; 85027; 86850; 86900; 86920; 94640; 96367; 96372; 96374; 96375; 96376; J0692; J0696; J1630; J1815; J1940; J2060; J2185; J3370; J7040; J7050; P9016